=== PATIENT | male | born 1985 | race Caucasian/White ===

== ENCOUNTER 2020-10-02 04:30 | Inpatient (IN) | payer OTHER, SELFPAY ==
[2020-10-02] VITALS (12 sets, daily range): BP systolic 116–137; BP diastolic 60–81; PULSE 65–82; RESP 14–18; TEMP 36.6–36.8; O2SAT 96–100; BMI 26.9
--- NOTE | ~2020-10-02 | CT_ITS ---
EXAMINATION: CT ABDOMEN AND PELVIS WITH CONTRAST CLINICAL INFORMATION: 34-year-old male with right lower quadrant pain. COMPARISON: None TECHNIQUE: Multidetector volumetric images were obtained from the superior aspect of the liver through the pubic symphysis following administration 85 mL of Omnipaque 350 intravenous contrast. Sagittal and coronal reformatted images were obtained on the technologist's workstation. This CT examination was performed using dose optimization techniques as appropriate, variously including the following: *Automated exposure control *Adjustment of mA and/or kV according to patient size (this includes techniques or standardized protocols for targeted exams where dose is matched to indication/reason for exam; i.e. extremities or head) *Use of iterative reconstruction technique DLP: 583 mGy-cm FINDINGS: Visualized lung bases demonstrate mild dependent atelectasis. The liver demonstrates normal size, contour and attenuation. The gallbladder is normal in appearance. The pancreas, spleen and adrenal glands are unremarkable. Symmetrically enhancing kidneys. No hydronephrosis bilaterally. A few subcentimeter renal hypodensities are too small to accurately characterize. The stomach is decompressed. Normal caliber loops of small and large bowel. The appendix is dilated measuring up to 1 cm in diameter. There is adjacent mesenteric stranding with a small amount of free fluid within the right paracolic gutter. A few mildly prominent lymph nodes are noted within the right lower abdomen. There is no complicating abscess. Nonaneurysmal abdominal aorta. A few prominent retroperitoneal lymph nodes are appreciated, nonspecific. The bladder is normal in appearance. The prostate gland is normal in size. No gross free pelvic fluid. No inguinal lymphadenopathy. No acute osseous abnormality. CT/CT abdomen pelvis w con IMPRESSION: CT findings most consistent with acute appendicitis. This Critical Result was discussed with Dr. Coleman at 8:54 AM on October 12, 2020 and it was ascertained that the content and urgency of the report was understood at the time of direct communication.
--- NOTE | 2020-10-02 05:19 | PC.NURSE ---
PT HAS A HX OF A BLOCKED URETER, NEEDING SURGERY.
[2020-10-02 05:20] LABS: MANUAL DIFF FLAG NO
[2020-10-02 05:21] LABS: Basophils Percent Auto 0.2 % (0-2); Eosinophils Absolute Auto 0.1 X10*3/uL (0.0-0.4); Eosinophils Percent Auto 0.8 % (0-4); Hematocrit 42.3 % (42-52); Hemoglobin 14.1 g/dl (14.0-18.0); Imm Gran Abs Auto 0.05 X10*3/uL (0.00-0.03); Imm Gran Pct Auto 0.4 % (0.0-0.4); Lymphocytes Absolute Auto 0.9 X10*3/uL (1.2-4.9); Lymphocytes Percent Auto 7.1 % (20-40); Mean Corpuscular HGB Conc 33.3 g/dl (31.0-36.0); Mean Corpuscular Hemoglobin 29.9 pg (27.0-33.0); Mean Corpuscular Volume 89.8 fL (80-98); Mean Platelet Volume 9.6 fL (9.4-12.4); Monocytes Absolute Auto 0.7 X10*3/uL (0.1-1.2); Monocytes Percent Auto 5.4 % (2-11); Neutrophils Absolute Auto 10.6 X10*3/uL (2.0-8.3); Neutrophils Percent Auto 86.1 % (45-73); Platelet Count 202 X10*3/uL (160-400); Red Blood Count 4.71 X10*6/uL (4.60-5.80); Red Cell Distribution Width 12.6 % (11.0-16.0); White Blood Count 12.3 X10*3/uL (4.8-10.8)
[2020-10-02 05:28] LABS: Glucose Urine UA NEG (NEG); Leukocyte Esterase Urine NEG (NEG); Nitrite Urine NEG (NEG); Specific Gravity - Urine 1.025 (1.005-1.025); Urine Blood NEG (NEG); Urine Ketones 15 MG/DL (NEG); Urine Protein NEG (NEG-TRACE)
[2020-10-02 05:32] LABS: Appearance Urine CLEAR; Color Urine YELLOW
[2020-10-02 05:46] LABS: Alanine Aminotransferase 22 U/L (0-40); Albumin Level 4.6 g/dL (3.5-5.0); Alkaline Phosphatase 38 U/L (39-117); Anion Gap 13 (12-20); Aspartate Amino Transferase 18 U/L (5-37); Blood Urea Nitrogen 12 mg/dL (9-16); Calcium 9.1 mg/dL (8.4-10.2); Carbon Dioxide 29 mmol/L (22-29); Chloride 103 mmol/L (96-108); Creatinine Clr Calc Pharmacy 123.3; Estimated Glomerular Filt Rate > 60; Glucose Random 109 mg/dL (60-115); Potassium 4.1 mmol/L (3.3-5.1); Sodium 141 mmol/L (135-145); Total Protein 7.1 g/dL (6.5-8.0)
--- NOTE | 2020-10-02 06:26 | ED_ITS ---
HPI - Abdominal Pain General Chief Complaint: Abdominal Pain Stated Complaint: Abdominal Pain Time Seen by Provider: 10/02/20 06:26 Source: patient Mode of arrival: ambulatory Limitations: no limitations History of Present Illness HPI narrative: 34 yo male with no sig PMH here with RLQ pain since 0200 + n/v MD elicited complaint: abdominal pain Pertinent past history: none Onset (ago): hour(s) (4) Pain Consistency: constant Location: RLQ Severity: moderate Quality: cramping and stabbing Radiation: none Migration to: no migration Exacerbating factors: movement Relieving factors: nothing Associated symptoms: nausea and vomiting Related Data Allergies Allergy/AdvReac Type Severity Reaction Status Date / Time Sulfa (Sulfonamide Allergy Unknown UNKNOWN Verified 10/02/20 04:58 Antibiotics) [SULFA (SULFONAMIDE ANTIBIOTICS)] Review of Systems Review of Systems Constitutional : No Weight loss, No Fever, No Chills ENT/Mouth : No sore throat, No Rhinorrhea Eyes: No Swelling, No Redness Cardiovascular : No Chest Pain, No SOB, NoEdema Respiratory : No Cough, No Sputum, No Wheezing Gastrointestinal : Positive Nausea, Positive Vomiting, no Diarrhea, positive abdominal Pain, No Hematochezia, No Melena Genitourinary : No Dysuria, No Urinary Frequency, No Hematuria, No Urgency Musculoskeletal : No joint pain, No Myalgias, No Joint Swelling Skin : No Skin Lesions, No rash Neuro : No Weakness, No Numbness, No Dizziness, No Headache Psych : No Anxiety/Panic, No Depression Heme/Lymph: No Bruising, No Lymphadenopathy Endocrine : No Polyuria, No Polydipsia All other systems reviewed and are negative. Physical Exam Vital Signs: Vital Signs: Last Vital Signs Temp 98.2 F 10/02/20 04:52 Pulse 66 10/02/20 04:52 Resp 14 10/02/20 04:52 BP 136/80 10/02/20 04:52 Pulse Ox 97 10/02/20 04:52 Body Mass Index 26.9 Appearance: Alert. Oriented X3. No acute distress. Eyes: Pupils equal, round and reactive to light. ENT: Pharynx normal. Neck: Normal inspection. Neck supple. CVS: Normal heart rate and rhythm. Pulses normal. Respiratory: No respiratory distress. Breath sounds normal. Abdomen: Soft and moderate RLQ pain and + Rovsing's sign no rebound or guarding Skin: Skin warm and dry. Normal skin color. Normal skin turgor. Extremities: No lower extremity edema. No calf ttp Neuro: Oriented X 3. No motor deficit. No sensory deficit. Course Course Course Narrative: call from Radiology - 854Am +appendicitis mild free fluid no abscess will notify surgery and start on zosyn 855am MDM - Abdominal Pain MDM Narrative Medical decision making narrative: 34 yo male with no sig PMH here with RLQ pain and n/v at this time will need labs, IV IV Toradol/zofran - CT scan for appen dicitis vs renal colic, dispo per results and findings. Differential Diagnosis Differential diagnosis: Likely abdominal pain, acute appendicitis and calculus of kidney Lab Data Result diagrams: 10/02/20 05:15 10/02/20 05:15 Labs: Lab Results 10/02/20 10/02/20 10/02/20 Range/Units 05:10 05:15 05:15 WBC 12.3 H (4.8-10.8) X10*3/uL RBC 4.71 (4.60-5.80) X10*6/uL Hgb 14.1 (14.0-18.0) g/dl Hct 42.3 (42-52) % MCV 89.8 (80-98) fL MCH 29.9 (27.0-33.0) pg MCHC 33.3 (31.0-36.0) g/dl RDW 12.6 (11.0-16.0) % Plt Count 202 (160-400) X10*3/uL MPV 9.6 (9.4-12.4) fL Immature Gran % (Auto) 0.4 (0.0-0.4) % Neut % (Auto) 86.1 H (45-73) % Lymph % (Auto) 7.1 L (20-40) % [place] % (Auto) 5.4 (2-11) % Eos % (Auto) 0.8 (0-4) % Baso % (Auto) 0.2 (0-2) % Lymph # (Auto) 0.9 L (1.2-4.9) X10*3/uL [place] # (Auto) 0.7 (0.1-1.2) X10*3/uL Eos # (Auto) 0.1 (0.0-0.4) X10*3/uL Baso # (Auto) 0.0 (0.0-0.2) X10*3/uL Abs Immat Gran (auto) 0.05 H (0.00-0.03) X10*3/uL Absolute Neuts (auto) 10.6 H (2.0-8.3) X10*3/uL Absolute Nucleated RBC 0.000 (0.0-0.012) X10*3/uL Nucleated RBC % (auto) 0.0 (0.0-0.2) /100WBC Hold Blue Top SEE NOTE Sodium (135-145) mmol/L Potassium (3.3-5.1) mmol/L Chloride (96-108) mmol/L Carbon Dioxide (22-29) mmol/L Anion Gap (12-20) BUN (9-16) mg/dL Creatinine (0.5-1.4) mg/dL Estim Creat Clear Calc Estimated GFR Random Glucose (60-115) mg/dL Calcium (8.4-10.2) mg/dL Total Bilirubin (0.0-1.0) mg/dL AST (5-37) U/L ALT (0-40) U/L Alkaline Phosphatase (39-117) U/L Total Protein (6.5-8.0) g/dL Albumin (3.5-5.0) g/dL Urine Color YELLOW Urine Appearance CLEAR Urine pH 6.0 (5.0-8.0) Ur Specific [place] 1.025 (1.005-1.025) Urine Protein NEG (NEG-TRACE) MG/DL Urine Glucose (UA) NEG (NEG) MG/DL Urine Ketones 15 (NEG) MG/DL Urine Blood NEG (NEG) Urine Nitrite NEG (NEG) Ur Leukocyte Esterase NEG (NEG) 10/02/20 Range/Units 05:15 WBC (4.8-10.8) X10*3/uL RBC (4.60-5.80) X10*6/uL Hgb (14.0-18.0) g/dl Hct (42-52) % MCV (80-98) fL MCH (27.0-33.0) pg MCHC (31.0-36.0) g/dl RDW (11.0-16.0) % Plt Count (160-400) X10*3/uL MPV (9.4-12.4) fL Immature Gran % (Auto) (0.0-0.4) % Neut % (Auto) (45-73) % Lymph % (Auto) (20-40) % [place] % (Auto) (2-11) % Eos % (Auto) (0-4) % Baso % (Auto) (0-2) % Lymph # (Auto) (1.2-4.9) X10*3/uL [place] # (Auto) (0.1-1.2) X10*3/uL Eos # (Auto) (0.0-0.4) X10*3/uL Baso # (Auto) (0.0-0.2) X10*3/uL Abs Immat Gran (auto) (0.00-0.03) X10*3/uL Absolute Neuts (auto) (2.0-8.3) X10*3/uL Absolute Nucleated RBC (0.0-0.012) X10*3/uL Nucleated RBC % (auto) (0.0-0.2) /100WBC Hold Blue Top Sodium 141 (135-145) mmol/L Potassium 4.1 (3.3-5.1) mmol/L Chloride 103 (96-108) mmol/L Carbon Dioxide 29 (22-29) mmol/L Anion Gap 13 (12-20) BUN 12 (9-16) mg/dL Creatinine 1.00 (0.5-1.4) mg/dL Estim Creat Clear Calc 123.3 Estimated GFR > 60 Random Glucose 109 (60-115) mg/dL Calcium 9.1 (8.4-10.2) mg/dL Total Bilirubin 1.0 (0.0-1.0) mg/dL AST 18 (5-37) U/L ALT 22 (0-40) U/L Alkaline Phosphatase 38 L (39-117) U/L Total Protein 7.1 (6.5-8.0) g/dL Albumin 4.6 (3.5-5.0) g/dL Urine Color Urine Appearance Urine pH (5.0-8.0) Ur Specific [place] (1.005-1.025) Urine Protein (NEG-TRACE) MG/DL Urine Glucose (UA) (NEG) MG/DL Urine Ketones (NEG) MG/DL Urine Blood (NEG) Urine Nitrite (NEG) Ur Leukocyte Esterase (NEG) Discharge Plan Discharge Clinical Impression: Abdominal pain, Acute appendicitis Patient Disposition: Admitted As Inpatient [facility] Past Medical History Attestation statement: The following information was validated with the patient. Medical History No active medical problems Surgical History History of kidney surgery Social History Social History Household Members: Spouse Housing: House Are you a primary clinical care manager to a significant other at home: No Alcohol intake: current Alcohol intake frequency: a few times a month Smoking Status: Never smoker Advance Directives: No
[2020-10-02] MEDS: 0.9 % Sodium Chloride 1,000 ML 999 ML IVCONT (06:37)
[2020-10-02] MEDS: ondansetron HCL 4 MG/2 ML VIAL IVPUSH (06:38)
[2020-10-02] MEDS: Ketorolac Tromethamine 30 MG/ML VIAL IVPUSH (06:38)
[2020-10-02] MEDS: iohexoL 350 MG/ML 100 ML INFUS..BTL IV (08:40)
--- NOTE | 2020-10-02 09:19 | PM.HPGS ---
History of Present Illness History of Present Illness Date of Service: 10/02/20 Chief complaint: Abdominal Pain Narrative: Sg Frausto is a 34 year old male presenting with complaints of abdominal pain in the right lower quadrant. The pain began early this morning in the lower abdomen gradually radiated to the right lower quadrant. Pain was associated with nausea and vomiting be denies fever or chills. Denies a previous history of similar symptoms. Presented to the emergency room this morning and was found to have tenderness in the right lower quadrant. He reports pain with ambulation. Laboratories revealed elevated WBC and CT of the abdomen and pelvis confirmed acute appendicitis without perforation. Review of Systems Constitutional: Constitutional: Denies chills, Denies fever(s), Denies headache(s) and Denies poor appetite ENT: Denies dizziness and Denies headache(s) Cardiovascular: Cardiovascular: Denies chest pain, Denies rapid heart rate, Denies palpitations and Denies slow heart rate Respiratory: Respiratory: Denies chest congestion, Denies cough, Denies pain on inspiration and Denies wheezing Gastrointestinal: Gastrointestinal: Reports abdominal pain, Denies bloating, Denies change in stool character, Denies constipation, Denies diarrhea, Reports nausea, Reports vomiting and Denies hematemesis Musculoskeletal: Musculoskeletal: Denies back pain, Denies arthralgias, Denies joint swelling and Denies numbness Integumentary/Breasts: Skin/Breast: Denies change in pigmentation, Denies erythema and Denies rash Neurologic: Denies dizziness, Denies headache(s) and Denies numbness Psychiatric: Psychiatric: Denies anxiety and Denies depression Endocrine: Endocrine: Denies palpitations Hematologic/Lymphatic: Hematologic/Lymphatic: Denies easy bleeding, Denies easy bruising and Denies lymphadenopathy Allergic/Immunologic: Allergic/Immunologic: Denies wheezing PMFSH Past Medical History Medical History No active medical problems Surgical History Surgical History History of kidney surgery Social History Social History Household Members: Spouse Housing: House Are you a primary caregiver services home to a significant other at home: No Alcohol intake: current Alcohol intake frequency: a few times a month Smoking Status: Never smoker Advance Directives: No Meds Allergies Allergy/AdvReac Type Severity Reaction Status Date / Time Sulfa (Sulfonamide Allergy Unknown UNKNOWN Verified 10/02/20 04:58 Antibiotics) [SULFA (SULFONAMIDE ANTIBIOTICS)] Active Medications: Current Medications Generic Name Dose Route Start Last Admin Trade Name Freq PRN Reason Stop Dose Admin Piperacillin Sod/Tazobactam 50 mls @ 100 mls/hr 10/02/20 08:55 Sod 3.375 gm/ Sodium Chloride IV 10/02/20 09:24 ONCE ONE Pharmacy Consult 1 each 10/02/20 08:56 Consult Rx Perform Med Rec MISCELLANE ONCE PRN Consult order Home Medications Medication Instructions Recorded Confirmed Last Taken Type No Known Home Meds 10/02/20 10/02/20 Unknown History Physical Exam Vital Signs: Vital Signs: Last Vital Signs Temp 98.2 F 10/02/20 04:52 Pulse 66 10/02/20 04:52 Resp 14 10/02/20 04:52 BP 136/80 10/02/20 04:52 Pulse Ox 97 10/02/20 04:52 Body Mass Index 26.9 Const: General: cooperative, comfortable and well developed Nutritional Appearance: well nourished Orientation/consciousness: patient oriented x3 Eyes: Sclerae: sclerae normal EOM: EOMs intact bilaterally Neck: Neck: Yes normal visual inspection Resp: Effort & Inspection: normal respiratory effort, no cough, no respiratory distress and no stridor Cardio: Jugular venous distension: no JVD GI: Inspection: Yes normal to inspection Palpation (GI): Soft to palpation, Tenderness to palpation present (GI) in the RLQ, at McBurney's point, obturator sign positive and Rovsing's sign positive, no guarding and not rigid Skin: General skin exam: dry skin Rashes: no rashes Neuro: General: patient oriented x3 and no focal motor deficits Extrem: General: Yes full ROM and Yes no clubbing, cyanosis or edema Psych: Appearance: grossly normal Results Results Labs: Short CBC 10/02/20 Range/Units 05:15 WBC 12.3 H (4.8-10.8) X10*3/uL Hgb 14.1 (14.0-18.0) g/dl Hct 42.3 (42-52) % Plt Count 202 (160-400) X10*3/uL BMP 10/02/20 05:15 Sodium 141 Potassium 4.1 Chloride 103 Carbon Dioxide 29 BUN 12 Creatinine 1.00 Calcium 9.1 Liver Function 10/02/20 Range/Units 05:15 Total Bilirubin 1.0 (0.0-1.0) mg/dL AST 18 (5-37) U/L ALT 22 (0-40) U/L Alkaline Phosphatase 38 L (39-117) U/L Albumin 4.6 (3.5-5.0) g/dL Urine 10/02/20 Range/Units 05:10 Urine Color YELLOW Urine Appearance CLEAR Urine pH 6.0 (5.0-8.0) Ur Specific [place] 1.025 (1.005-1.025) Urine Protein NEG (NEG-TRACE) MG/DL Urine Glucose (UA) NEG (NEG) MG/DL Assessment and Plan (1) Acute appendicitis: Qualifiers: Acute appendicitis type: with localized peritonitis Appendicitis abscess presence: without abscess Appendicitis gangrene presence: without gangrene Appendicitis perforation presence: without perforation Qualified Code(s): K35.30 - Acute appendicitis with localized peritonitis, without perforation or gangrene Status: Acute 34-year-old male patient presenting with complaints of abdominal pain in the right lower quadrant. On examination he is tender in the right lower quadrant with localized rebound and Rovsing sign. Laboratories revealed elevated WBC. CT of the abdomen and pelvis confirmed a thickened appendix consistent with an uncomplicated acute appendicitis. I discussed treatment with either IV antibiotics verses laparoscopic appendectomy. After discussion of the procedure, risks, and alternatives, he consents to a laparoscopic or possible open appendectomy. He will be added onto the operative schedule for today.
[2020-10-02 09:27] LABS: INTERNATIONAL NORM RATIO 1.1 (0.9-1.1); Prothrombin Time 12.8 SEC (10.8-13.0)
[2020-10-02 09:29] LABS: Partial Thromboplastin Time 34.7 SEC (24.1-38.0)
[2020-10-02] MEDS: Piperacillin Sodium/Tazobactam 3.375 GM in 0.9 % Sodium Chloride 50 ML IV (09:32)
--- NOTE | 2020-10-02 10:33 | P.CONAN_ITS ---
[facility] Active Problems Active Problems: All Active Problems (Updated 10/02/20 @ 08:56 by Marjan vasquez DO) Abdominal pain (Acute) Acute appendicitis (Acute) Past Medical History Medical History No active medical problems Surgical History Surgical History History of kidney surgery Social History Social History Household Members: Spouse Housing: House Alcohol intake: unknown Smoking Status: Current some day smoker Meds Allergies Allergy/AdvReac Type Severity Reaction Status Date / Time Sulfa (Sulfonamide Allergy Unknown UNKNOWN Verified 10/02/20 10:49 Antibiotics) [SULFA (SULFONAMIDE ANTIBIOTICS)] Active Medications: Current Medications Generic Name Dose Route Start Last Admin Trade Name Freq PRN Reason Stop Dose Admin Pharmacy Consult 1 each 10/02/20 08:56 Consult Rx Perform Med Rec MISCELLANE ONCE PRN Consult order Home Medications Medication Instructions Recorded Confirmed Last Taken Type No Known Home Meds 10/02/20 10/02/20 Unknown History Exam Exam Date and Time: October 02, 2020 1033 Height,Weight and Vital Signs: Height 6 ft 2 in Weight 95.254 kg Last Vital Signs Temp 98.2 F 10/02/20 04:52 Pulse 66 10/02/20 04:52 Resp 14 10/02/20 04:52 BP 136/80 10/02/20 04:52 Pulse Ox 97 10/02/20 04:52 Pertinent Lab Results Pertinent Lab Results: Laboratory Tests 10/02/20 10/02/20 10/02/20 05:10 05:15 05:15 WBC 12.3 H RBC 4.71 Hgb 14.1 Hct 42.3 MCV 89.8 MCH 29.9 MCHC 33.3 RDW 12.6 Plt Count 202 MPV 9.6 Immature Gran % (Auto) 0.4 Neut % (Auto) 86.1 H Lymph % (Auto) 7.1 L [place] % (Auto) 5.4 Eos % (Auto) 0.8 Baso % (Auto) 0.2 Lymph # (Auto) 0.9 L [place] # (Auto) 0.7 Eos # (Auto) 0.1 Baso # (Auto) 0.0 Abs Immat Gran (auto) 0.05 H Absolute Neuts (auto) 10.6 H Absolute Nucleated RBC 0.000 Nucleated RBC % (auto) 0.0 PT 12.8 INR 1.1 APTT 34.7 Hold Blue Top SEE NOTE Sodium Potassium Chloride Carbon Dioxide Anion Gap BUN Creatinine Estim Creat Clear Calc Estimated GFR Random Glucose Calcium Total Bilirubin AST ALT Alkaline Phosphatase Total Protein Albumin Urine Color YELLOW Urine Appearance CLEAR Urine pH 6.0 Ur Specific [place] 1.025 Urine Protein NEG Urine Glucose (UA) NEG Urine Ketones 15 Urine Blood NEG Urine Nitrite NEG Ur Leukocyte Esterase NEG 10/02/20 05:15 WBC RBC Hgb Hct MCV MCH MCHC RDW Plt Count MPV Immature Gran % (Auto) Neut % (Auto) Lymph % (Auto) [place] % (Auto) Eos % (Auto) Baso % (Auto) Lymph # (Auto) [place] # (Auto) Eos # (Auto) Baso # (Auto) Abs Immat Gran (auto) Absolute Neuts (auto) Absolute Nucleated RBC Nucleated RBC % (auto) PT INR APTT Hold Blue Top Sodium 141 Potassium 4.1 Chloride 103 Carbon Dioxide 29 Anion Gap 13 BUN 12 Creatinine 1.00 Estim Creat Clear Calc 123.3 Estimated GFR > 60 Random Glucose 109 Calcium 9.1 Total Bilirubin 1.0 AST 18 ALT 22 Alkaline Phosphatase 38 L Total Protein 7.1 Albumin 4.6 Urine Color Urine Appearance Urine pH Ur Specific [place] Urine Protein Urine Glucose (UA) Urine Ketones Urine Blood Urine Nitrite Ur Leukocyte Esterase Airway Mallampati Class: II TM Dist: >3cm Neck ROM: Full Loose/Missing/Broken Teeth: No Heart: RRR Lungs: CTA Assessment and Plan Assessment Anesthesia Assessment: Anesthesia Plan Discussed and Chart Reviewed Final Anesthetic Review NPO: Yes ASA Class: II Final Preanesthetic Review: Meds/Allgs Chart Reviewed, Consent Obtained/Reviewed and Anes Risks/Benef Reviewed Patient Risk: Low Procedure Risk: Low Anesthetic Plan Anesthetic Plan: GA Disposition: Standard PACU
[2020-10-02 10:37] LABS: COVID-19 Test Negative (Negative); IDNOW Serial# 9DD0AD1C
--- NOTE | 2020-10-02 10:45 | PC.NURSE ---
pt ambulatory to bathroom and then via wheelchair to short stay. Pt states pain tolerable, better than earlier.
[2020-10-02] MEDS: Lactated Ringers 1,000 ML 50 ML IV (11:03)
--- NOTE | 2020-10-02 12:09 | W.PM.OPN ---
Operative Note Operative Note Date of Service: 10/02/20 Narrative: Preoperative diagnosis: Acute appendicitis Postoperative diagnosis: Same Procedure: Laparoscopic appendectomy Surgeon: Gavin Avila MD Family Service Counselor:none Anesthesia: General endotracheal Indications for procedure: 34-year-old male patient presenting with complaints of abdominal pain in the lower abdomen radiating to the right lower quadrant found to have an elevated WBC and appendicitis by CT of the abdomen and pelvis. Operative findings: Appendicitis without rupture. Specimen: Appendix Estimated blood loss: 5 mL Complications: None Procedure details: Patient was brought to the OR and placed in a supine position. After administering general anesthesia the patient's abdomen was prepped with ChloraPrep and draped in a sterile fashion. A surgical time-out was called and consent confirmed. Patient received preoperative antibiotics and Venodyne boots were in place. Local anesthesia consisting of 0.75% Sensorcaine with epinephrine was infiltrated in periumbilical region. A 5 mm incision was made below the umbilicus and carried down through subcutaneous tissue. A Veress needle was then inserted while elevating abdominal cavity with towel clips. After a positive drop test the abdomen was insufflated to a pressure of 15 mm of mercury. The Veress needle was removed and a 5 mm trocar inserted. The camera was then inserted in the abdomen explored. A 2nd 5 mm trocars placed in the lower midline. A 12 mm trocar was then placed in the left lower quadrant. The patient was then placed in a Trendelenburg position and rotated to the left. The appendix was identified in the right lower quadrant and brought up using blunt dissecting clamps. The mesentery of the appendix was then divided using the LigaSure. The appendiceal artery was cauterized and divided using the LigaSure. Dissection was continued down to the base of the cecum. An Endo-KIRSTY stapler with a purple reload was then used to divide the appendix at the base with the cecum. The appendix was then placed in Endo-Catch bag and brought out through the left lower quadrant incision. The abdomen was then irrigated with saline solution and suctioned dry. Wounds were checked for hemostasis. CO2 was then evacuated from the abdominal cavity and all trocars removed. Fascia was closed in the left lower quadrant incision using a [id number] 0 Polysorb suture. Skin was closed at all incisions using a subcuticular 4-0 Polysorb suture. Steri-Strips 2 x 2 gauze and Tegaderm were then applied. The patient tolerated the procedure well. Sponge, instrument, needle counts reported as correct. The patient was transferred to PACU in stable condition.
[2020-10-02] MEDS: 0.9 % Sodium Chloride Flush 3 ML SYRINGE IVFLUSH ×2 (17:25→20:38)
[2020-10-03 00:01] VITALS: BP 106/62; PULSE 64; RESP 20; TEMP 36.8; O2SAT 96
[2020-10-03 03:59] VITALS: BP 101/56; PULSE 69; RESP 20; TEMP 36.9; O2SAT 96
[2020-10-03 07:27] VITALS: BP 121/79; PULSE 71; RESP 17; TEMP 36.9; O2SAT 97
--- NOTE | 2020-10-03 07:37 | P.PNGS_ITS ---
Subjective Subjective Date of Service: 10/03/20 Interval history: Patient feels much improved; tolerated po last night without nausea or vomiting. Physical Exam Vital Signs: Vital Signs: Last Vital Signs Temp 98.5 F 10/03/20 07:27 Pulse 71 10/03/20 07:27 Resp 17 10/03/20 07:27 BP 121/79 10/03/20 07:27 Pulse Ox 97 10/03/20 07:27 Body Mass Index 26.9 Const: General: cooperative, healthy appearing, comfortable and no acute distress Resp: Effort & Inspection: normal respiratory effort, no audible wheezes and no cough GI: Other: incisions are clean and intact Inspection: Yes normal to ins pection Palpation (GI): Soft to palpation, no guarding and not rigid Skin: General skin exam: no rashes or lesions noted Extrem: General: Yes normal to inspection Progress Note: A&P Assessment and plan (1) Acute appendicitis: Status: Acute Assessment and Plan: POD #1 s/p laparoscopic appendectomy. Patient tolerated the surgery well and is comfortable today. He tolerated his diet last night without nausea or vomiting. Will discharge to home, follow up in office in one week. Fall Risk Details Current Medications: Current Medications Generic Name Dose Route Start Last Admin Trade Name Freq PRN Reason Stop Dose Admin Acetaminophen 650 mg 10/02/20 15:11 Acetaminophen 325 Mg Tablet PO Q6H PRN Pain, Mild (Pain Scale 1-3) Morphine Sulfate 3 mg 10/02/20 15:11 Morphine Sulfate 2 Mg/Ml Cartridge IVPUSH Q3H PRN Pain, Severe (Pain Scale 7-10) Ondansetron HCl 4 mg 10/02/20 15:11 Ondansetron Hcl 4 Mg/2 Ml Vial IVPUSH Q8H PRN Nausea and Vomiting Oxycodone HCl 5 mg 10/02/20 15:11 Oxycodone Hcl Immed Release 5 Mg Tablet PO Q6H PRN Pain, Moderate (Pain Scale 4-6 Pharmacy Consult 1 each 10/02/20 08:56 Consult Rx Perform Med Rec MISCELLANE ONCE PRN Consult order Sodium Chloride 3 ml 10/02/20 16:00 10/02/20 20:38 0.9 % Sodium Chloride Flush 3 Ml Syringe IVFLUSH 3 ml QSHIFT LLOYD Administration Zolpidem Tartrate 5 mg 10/02/20 15:11 Zolpidem Tartrate 5 Mg Tablet PO BEDTIME PRN Insomnia Time Spent With Patient Time: Total time spent is greater than 50% in coordination of care (as documented) at patient's floor/unit and/or counseling patient: Time with patient: 15 - 24 minutes
--- NOTE | 2020-10-03 07:40 | PM.DS ---
DS: Providers Provider Date of Service: 10/03/20 Date of admission: 10/02/20 09:25 Date of discharge: 10/03/20 Primary care physician: Jodi Barroso PA-C Admitting clinician: Gavin Avila Discharging clinician: Gavin Avila DS: Diagnosis Discharge Diagnosis (1) Acute appendicitis: Status: Acute Problem details: s/p laparoscopic appendectomy on 10/02/2020 DS: Medications Discharge Medications Home Medications: Home Medications Medication Instructions Recorded Confirmed No Known Home Meds 10/02/20 10/02/20 Previous Rx's Medication Instructions Recorded oxycodone 5 mg PO Q6H PRN #14 tab 10/03/20 DS: Summary Hospital Course Hospital Course: Sg Frausto is a 34 year old male presenting with complaints of abdominal pain in the right lower quadrant. The pain began early yesterday morning in the lower abdomen gradually radiated to the right lower quadrant. Pain was associated with nausea and vomiting be denies fever or chills. Denies a previous history of similar symptoms. Presented to the emergency room and was found to have tenderness in the right lower quadrant. He reports pain with ambulation. Laboratories revealed elevated WBC and CT of the abdomen and pelvis confirmed acute appendicitis without perforation. Patient was taken to the OR on the day of admission and underwent a laparoscopic appendectomy. Operative findings were consistent with acute appendicitis without perforation or abscess. Patient tolerated the procedure well and was transported to recovery room in stable condition. He was advanced to a regular diet on the evening of surgery and by the next hospital day was tolerating this diet well without nausea or vomiting. Patient is comfortable on oral pain medication. Patient is to be discharged to home on postoperative day 1. He was instructed to avoid lifting greater than 10 lb for the next 2 weeks. He should also avoid driving for the next week. He may resume a regular diet. I have asked him to return to the office in 1 week for wound examination. He should call sooner for fever, chills, nausea, vomiting, or increased abdominal pain. Time Spent with Patient Time attestation: Total time spent providing and/or coordinating discharge services: Discharge coordination time: Less than 30 minutes Physical Exam Vital Signs: Vital Signs: Last Vital Signs Temp 98.5 F 10/03/20 07:27 Pulse 71 10/03/20 07:27 Resp 17 10/03/20 07:27 BP 121/79 10/03/20 07:27 Pulse Ox 97 10/03/20 07:27 Body Mass Index 26.9 Const General: cooperative, healthy appearing, comfortable and no acute distress Resp Effort & Inspection: normal respiratory effort, no audible wheezes and no cough GI Other: incisions are clean and intact Inspection: Yes normal to inspection Palpation (GI): Soft to palpation, no guarding and not rigid Skin General skin exam: no rashes or lesions noted Extrem General: Yes normal to inspection DS: Data Data Completed and Pending Pending studies at discharge: Pending at discharge 10/02/20 11:57 Surgical [PTH] Routine Labs on day of discharge: Laboratory Results - last 24 hr 10/02/20 10/02/20 05:15 10:17 PT 12.8 INR 1.1 APTT 34.7 COVID-19 ([facility]) Negative COVID-19 Clin Com See Note Discharge Plan Discharge Patient Disposition: Home, Self-Care Referrals: Gavin Avila MD [Physician] - 1 Week Jodi Barroso PA-C [Primary Care Provider] - Discharge Medications: New oxycodone 5 mg tablet 5 mg PO Q6H PRN (Reason: pain) Qty: 14 RF: 0 No Action No Known Home Meds RF: 0 Discharge Orders: Discharge Order (Routine); Ordered 10/03/20 Ordered By: Gavin Avila Diet: advance to usual diet Activity on Discharge: No heavy lifting Stand Alone Forms: Patient Portal Discharge page, Work/School Release Activity Restrictions/Additional Instructions: If the incision area is tender, you may apply an ice pack for short intervals (No more than 20 minutes on, followed by at least 20 minutes off). Do not apply heat. Do not use creams, lotions, or topical antibiotics unless instructed to do so by your surgeon. These can cause infection or allergic reaction. Ok to shower. You have ronald closing your incision and these will be removed approximately 10-14 days after surgery. Call Your Doctor If: -Your temperature exceeds 101.5? F -You experience excessive pain or swelling -You have an unexpected reaction to medication -You have excessive bleeding -You experience continued vomiting/nausea -Your incision begins to separate -Your incision shows signs of infection such as increased redness, swelling, excessive pain, drainage (light blood or clear fluid is normal) or heat No lifting > 10 pounds for 2 weeks No driving for one week Ice to the incision x 24 hours Remove dressing in 3 days Follow up in office in one week. Care Plan Goals: Return to normal activity and normal diet Health Concerns: acute appendicitis Plan of Treatment: Laparoscopic appendectomy Patient Instructions: Laparoscopic Appendectomy (DC)
[2020-10-03] MEDS: oxyCODONE HCl Immed Release 5 MG TABLET PO (07:41)
[2020-10-03] MEDS: 0.9 % Sodium Chloride Flush 3 ML SYRINGE IVFLUSH (07:42)
--- NOTE | 2020-10-03 08:37 | MHC.CM.PN ---
EMR REVIEWED, PT ADMITTED W/ABDOMINAL PLANE, PT IS ALERT AND ORIENTED, IS EMPLOYED [employer], INDEPENDENT W/CARE, NO DME OR HOME SERVICES, PT VERIFIES PCP ON FILE IS ACCURATE AND DECLINES HCP AT THIS TIME, D/C PLAN ALREADY IN PLACE. DISCHARGE PLAN HOME SELF-CARE, TO TRANSPORT. PCP: DONALD THOMSON
--- NOTE | 2020-10-03 14:40 | HO.POSTANES ---
Post Anesthesia Evaluation Post Anesthesia Evaluation Vital Signs: Vital Signs Temp Pulse Resp BP Pulse Ox 10/03/20 07:27 98.5 F 71 17 121/79 97 10/03/20 03:59 98.5 F 69 20 101/56 L 96 Anesthesia: General Endotracheal-GETA Mental Status: Awake Pain Control: Satisfactory Nausea/Vomiting: None Hydration: Adequate Anesthesia-Related Issues: No Anes. Related Issues
== END 2020-10-03 08:55 | disposition home or self-care (01) | DRG 234 ==
LOC: HO.ED 09:30 → HO.EDOVER 09:33 → HO.S3 14:44
PROVIDERS: Admitting Provider Surgery; Emergency Provider Emergency Medicine; PCP Physician Assistant; Visit Provider Surgery
PROC: 0DTJ4ZZ Resection of Appendix, Percutaneous Endoscopic Approach (ICD-10-PCS; CPT 44970; principal; 2020-10-02 11:00)
DX: K35.30 Acute appendicitis with localized peritonitis, without perforation or gangrene (principal); Z20.822 Contact with and (suspected) exposure to COVID-19; Z88.2 Allergy status to sulfonamides
CPT/HCPCS: 36415; 74177; 80053; 81003; 85025; 85610; 85730; 87635; 88304; 96365; 96375; 99024; 99285; J0131; J1100; J1885; J2250; J2405; J2543; J3010; Q9967

== ENCOUNTER → 2020-10-11 15:07 | Outpatient (BNVA) | payer OTHER, SELFPAY | PROVIDERS: PCP Physician Assistant; Visit Provider Surgery | DX: K35.30 Acute appendicitis with localized peritonitis, without perforation or gangrene (principal) | CPT/HCPCS: 99212 ==

== ENCOUNTER 2020-10-24 19:28 | Emergency (ER) | payer OTHER, SELFPAY ==
--- NOTE | ~2020-10-24 | US_ITS ---
EXAMINATION: US ABDOMEN LIMITED CLINICAL INFORMATION: Right upper quadrant pain. COMPARISON: None TECHNIQUE: Real-time imaging of the right upper quadrant targeting the gallbladder. FINDINGS: GALLBLADDER: Normal. The gallbladder is physiologically distended without evidence of stones, sludge, polyps, wall thickening or pericholecystic fluid. COMMON BILE DUCT: Normal in caliber measuring 0.3 cm in diameter. FREE FLUID: None. US/US abdomen limited IMPRESSION: Normal appearance of the gallbladder.
--- NOTE | ~2020-10-24 | CT_ITS ---
EXAMINATION: CT ABDOMEN AND PELVIS WITH CONTRAST CLINICAL INFORMATION: RUQ pain, constant and worsening since appendectomy 10/02/20 COMPARISON: CT abdomen and pelvis 10/02/2020 TECHNIQUE: Multidetector volumetric images were obtained from the superior aspect of the liver through the pubic symphysis following administration 85 mL of Omnipaque 350 intravenous contrast. Sagittal and coronal reformatted images were obtained on the technologist's workstation. Oral contrast: No This CT examination was performed using dose optimization techniques as appropriate, variously including the following: *Automated exposure control *Adjustment of mA and/or kV according to patient size (this includes techniques or standardized protocols for targeted exams where dose is matched to indication/reason for exam; i.e. extremities or head) *Use of iterative reconstruction technique DLP: 598 mGy-cm FINDINGS: LUNG BASES: The visualized lung bases are unremarkable. LIVER, GALLBLADDER, AND BILIARY TREE: The liver is normal in size, shape, and attenuation. No focal hepatic lesion or biliary ductal dilatation is present. The gallbladder is contracted but otherwise unremarkable with no evidence of radiopaque gallstones, gallbladder wall thickening, or obvious pericholecystic inflammatory changes. PANCREAS: Unremarkable. SPLEEN: Unremarkable. ADRENAL GLANDS: Unremarkable. KIDNEYS AND URETERS: The kidneys are normal in size, shape, and attenuation. No hydronephrosis, hydroureter, or calculi seen. No perinephric stranding. BLADDER: Unremarkable. GASTROINTESTINAL TRACT: Since the prior exam the appendix has been removed and there is surgical material in the region of resection. There is a small amount of fluid remaining in the paracolic gutter on the right fairly similar to that which was present previously (see talamantes images). Diverticular changes are present in the colon without diverticulitis. The small and large bowel are otherwise unremarkable. ABDOMINAL WALL: No significant hernia is appreciated. LYMPH NODES: Prominent left para-aortic lymph nodes are unchanged. No gross lymphadenopathy is present. VASCULAR: Unremarkable. PELVIC VISCERA: Unremarkable. OSSEOUS STRUCTURES: Unremarkable. CT/CT abdomen pelvis w con IMPRESSION: An etiology for the patient's continued worsening contrast right upper quadrant pain since appendectomy has not been found. A small amount of fluid remains in the right paracolic gutter. A discrete abscess is not present.
[2020-10-24 19:44] VITALS: BP 122/83; PULSE 74; RESP 18; TEMP 37; O2SAT 100; BMI 26.9
[2020-10-24 20:03] LABS: MANUAL DIFF FLAG NO
[2020-10-24 20:04] LABS: Basophils Percent Auto 0.4 % (0-2); Eosinophils Absolute Auto 0.4 X10*3/uL (0.0-0.4); Eosinophils Percent Auto 5.7 % (0-4); Hematocrit 40.5 % (42-52); Hemoglobin 13.7 g/dl (14.0-18.0); Imm Gran Abs Auto 0.01 X10*3/uL (0.00-0.03); Imm Gran Pct Auto 0.1 % (0.0-0.4); Lymphocytes Absolute Auto 2.2 X10*3/uL (1.2-4.9); Lymphocytes Percent Auto 30.2 % (20-40); Mean Corpuscular HGB Conc 33.8 g/dl (31.0-36.0); Mean Corpuscular Volume 88.6 fL (80-98); Mean Platelet Volume 10.1 fL (9.4-12.4); Monocytes Absolute Auto 0.6 X10*3/uL (0.1-1.2); Neutrophils Absolute Auto 4.1 X10*3/uL (2.0-8.3); Neutrophils Percent Auto 55.6 % (45-73); Platelet Count 227 X10*3/uL (160-400); Red Blood Count 4.57 X10*6/uL (4.60-5.80); Red Cell Distribution Width 12.5 % (11.0-16.0); White Blood Count 7.3 X10*3/uL (4.8-10.8)
[2020-10-24 20:28] LABS: Alanine Aminotransferase 13 U/L (0-40); Albumin Level 4.6 g/dL (3.5-5.0); Alkaline Phosphatase 49 U/L (39-117); Anion Gap 13 (12-20); Aspartate Amino Transferase 14 U/L (5-37); Bilirubin Direct 0.2 mg/dL (0.0-0.5); Bilirubin Total 0.4 mg/dL (0.0-1.0); Blood Urea Nitrogen 15 mg/dL (9-16); Calcium 9.3 mg/dL (8.4-10.2); Carbon Dioxide 27 mmol/L (22-29); Chloride 102 mmol/L (96-108); Creatinine Clr Calc Pharmacy 127.1; Estimated Glomerular Filt Rate > 60; Glucose Random 97 mg/dL (60-115); Potassium 3.9 mmol/L (3.3-5.1); Sodium 138 mmol/L (135-145); Total Protein 7.3 g/dL (6.5-8.0)
[2020-10-24 21:49] VITALS: BP 134/70; PULSE 57; RESP 15; TEMP 36.6; O2SAT 99
--- NOTE | 2020-10-24 21:58 | ED_ITS ---
HPI - Abdominal Pain General Chief Complaint: Abdominal Pain Stated Complaint: abdominal pain Time Seen by Provider: 10/24/20 21:43 Source: patient Mode of arrival: ambulatory Limitations: no limitations History of Present Illness HPI narrative: Patient comes to emergency room complaining of right upper quadrant pain. Patient states on October 02 he had an appendectomy. Patient states that during his hospital stay, he noticed that he had right upper quadrant pain, constant, 4/10, radiating towards the right shoulder. Patient states initially he thought it was due to the CO2 that is used for the laparoscopic appendectomy. However, the pain is constant, seems that today might have worsened after eating chicken sandwich. Patient denies vomiting or diarrhea. At this time, patient declined medication for pain or nausea. Patient states that otherwise he has been recovering well from his laparoscopic appendectomy Related Data Home Medications Medication Instructions Recorded Confirmed No Known Home Meds 10/02/20 10/02/20 Allergies Allergy/AdvReac Type Severity Reaction Status Date / Time Sulfa (Sulfonamide Allergy Unknown UNKNOWN Verified 10/02/20 10:49 Antibiotics) [SULFA (SULFONAMIDE ANTIBIOTICS)] Review of Systems Review of Systems Constitutional : No Weight loss, No Fever, No Chills, No Night Sweats, No Fatigue, No Malaise ENT/Mouth : No Hearing loss, No Ear Pain, No Nasal Congestion, No Sinus Pain, No Hoarseness, No sore throat, No Rhinorrhea, No Swallowing Difficulty Eyes: No Eye Pain, No Swelling, No Redness, No Foreign Body, No Discharge, No Vision Changes Cardiovascular : No Chest Pain, No SOB, No Dyspnea on Exertion, No Orthopnea, No Edema, No Palpitations Respiratory : No Cough, No Sputum, No Wheezing, No Smoke Exposure, No Dyspnea Gastrointestinal : No Nausea, No Vomiting, No Diarrhea, No Constipation, complaining of right upper quadrant pain radiating towards the right shoulder, No Hematochezia, No Melena Genitourinary : no irregular bleeding, No Dysuria, No Urinary Frequency, No H ematuria, No Urinary Incontinence, No Urgency, No Flank Pain, No Urinary Flow Changes, No Hesitancy Musculoskeletal : No joint pain, No Myalgias, No Joint Swelling Skin : No Skin Lesions, No rash Neuro : No Weakness, No Numbness, No Paresthesias, No Loss of Consciousness, No Dizziness, No Headache Psych : No Anxiety/Panic, No Depression, No SI/HI/AH/VH, No Social Issues, Heme/Lymph: No Bruising, No Bleeding,No Lymphadenopathy Endocrine : No Polyuria, No Polydipsia, No Temperature Intolerance Physical Exam Vital Signs: Vital Signs: Last Vital Signs Temp 97.8 F 10/25/20 00:46 Pulse 66 10/25/20 00:46 Resp 16 10/25/20 00:46 BP 123/72 10/25/20 00:46 Pulse Ox 98 10/25/20 00:46 Body Mass Index 26.9 Appearance: Alert. Oriented X3. No acute distress. Eyes: Pupils equal, round and reactive to light. ENT: Pharynx normal. Neck: Normal inspection. Neck supple. No lymph nodes noted. No crepitus CVS: Normal heart rate and rhythm. Pulses normal. Normal S1 and S2 Respiratory: No respiratory distress. Breath sounds normal. No Wheezing. No rales Abdomen: Soft , mild tenderness in right upper quadrant, mild positive Dumont sign. No rigidity. No distention. Skin: Skin warm and dry. Normal skin color. Normal skin turgor. Extremities: No lower extremity edema. No lower extremity edema. No Lacerations. No Rash Neuro: Oriented X 3. No motor deficit. No sensory deficit. Moving all extermities. No slurred speech. Course Course Course Narrative: I discussed the CT with the patient, no acute findings, patient declined any pain or nausea medication. Ultrasound will be done. I discussed the labs and imaging with the patient, no acute findings. Patient will call Dr. Avila tomorrow or Thursday for follow-up. MDM - Abdominal Pain Lab Data Result diagrams: 10/24/20 22:23 10/24/20 22:23 Labs: Lab Results 10/24/20 10/24/20 10/24/20 Range/Units 19:57 19:57 19:57 WBC 7.3 (4.8-10.8) X10*3/uL RBC 4.57 L (4.60-5.80) X10*6/uL Hgb 13.7 L (14.0-18.0) g/dl Hct 40.5 L (42-52) % MCV 88.6 (80-98) fL MCH 30.0 (27.0-33.0) pg MCHC 33.8 (31.0-36.0) g/dl RDW 12.5 (11.0-16.0) % Plt Count 227 (160-400) X10*3/uL MPV 10.1 (9.4-12.4) fL Immature Gran % (Auto) 0.1 (0.0-0.4) % Neut % (Auto) 55.6 (45-73) % Lymph % (Auto) 30.2 (20-40) % Hampton % (Auto) 8.0 (2-11) % Eos % (Auto) 5.7 H (0-4) % Baso % (Auto) 0.4 (0-2) % Lymph # (Auto) 2.2 (1.2-4.9) X10*3/uL Hampton # (Auto) 0.6 (0.1-1.2) X10*3/uL Eos # (Auto) 0.4 (0.0-0.4) X10*3/uL Baso # (Auto) 0.0 (0.0-0.2) X10*3/uL Abs Immat Gran (auto) 0.01 (0.00-0.03) X10*3/uL Absolute Neuts (auto) 4.1 (2.0-8.3) X10*3/uL Absolute Nucleated RBC 0.000 (0.0-0.012) X10*3/uL Nucleated RBC % (auto) 0.0 (0.0-0.2) /100WBC Hold Blue Top SEE NOTE Sodium 138 (135-145) mmol/L Potassium 3.9 (3.3-5.1) mmol/L Chloride 102 (96-108) mmol/L Carbon Dioxide 27 (22-29) mmol/L Anion Gap 13 (12-20) BUN 15 (9-16) mg/dL Creatinine 0.97 (0.5-1.4) mg/dL Estim Creat Clear Calc 127.1 Estimated GFR > 60 Random Glucose 97 (60-115) mg/dL Calcium 9.3 (8.4-10.2) mg/dL Total Bilirubin 0.4 (0.0-1.0) mg/dL Direct Bilirubin 0.2 (0.0-0.5) mg/dL AST 14 (5-37) U/L ALT 13 (0-40) U/L Alkaline Phosphatase 49 D (39-117) U/L Total Protein 7.3 (6.5-8.0) g/dL Albumin 4.6 (3.5-5.0) g/dL Lipase (8-78) U/L 10/24/20 10/24/20 10/24/20 Range/Units 22:23 22:23 22:23 WBC 7.6 (4.8-10.8) X10*3/uL RBC 4.40 L (4.60-5.80) X10*6/uL Hgb 13.2 L (14.0-18.0) g/dl Hct 39.3 L (42-52) % MCV 89.3 (80-98) fL MCH 30.0 (27.0-33.0) pg MCHC 33.6 (31.0-36.0) g/dl RDW 12.6 (11.0-16.0) % Plt Count 214 (160-400) X10*3/uL MPV 9.9 (9.4-12.4) fL Immature Gran % (Auto) 0.3 (0.0-0.4) % Neut % (Auto) 53.7 (45-73) % Lymph % (Auto) 30.8 (20-40) % Hampton % (Auto) 8.8 (2-11) % Eos % (Auto) 5.9 H (0-4) % Baso % (Auto) 0.5 (0-2) % Lymph # (Auto) 2.3 (1.2-4.9) X10*3/uL Hampton # (Auto) 0.7 (0.1-1.2) X10*3/uL Eos # (Auto) 0.5 H (0.0-0.4) X10*3/uL Baso # (Auto) 0.0 (0.0-0.2) X10*3/uL Abs Immat Gran (auto) 0.02 (0.00-0.03) X10*3/uL Absolute Neuts (auto) 4.1 (2.0-8.3) X10*3/uL Absolute Nucleated RBC 0.000 (0.0-0.012) X10*3/uL Nucleated RBC % (auto) 0.0 (0.0-0.2) /100WBC Hold Blue Top Sodium 138 (135-145) mmol/L Potassium 4.3 (3.3-5.1) mmol/L Chloride 103 (96-108) mmol/L Carbon Dioxide 26 (22-29) mmol/L Anion Gap 13 (12-20) BUN 16 (9-16) mg/dL Creatinine 0.86 (0.5-1.4) mg/dL Estim Creat Clear Calc 143.3 Estimated GFR > 60 Random Glucose 91 (60-115) mg/dL Calcium 9.3 (8.4-10.2) mg/dL Total Bilirubin 0.4 (0.0-1.0) mg/dL Direct Bilirubin 0.2 (0.0-0.5) mg/dL AST 12 (5-37) U/L ALT 11 (0-40) U/L Alkaline Phosphatase 47 (39-117) U/L Total Protein 6.7 (6.5-8.0) g/dL Albumin 4.3 (3.5-5.0) g/dL Lipase 24 (8-78) U/L Imaging Data CT scan - abdomen: Radiologist's impression: FINDINGS: LUNG BASES: The visualized lung bases are unremarkable. LIVER, GALLBLADDER, AND BILIARY TREE: The liver is normal in size, shape, and attenuation. No focal hepatic lesion or biliary ductal dilatation is present. The gallbladder is contracted but otherwise unremarkable with no evidence of radiopaque gallstones, gallbladder wall thickening, or obvious pericholecystic inflammatory changes. PANCREAS: Unremarkable. SPLEEN: Unremarkable. ADRENAL GLANDS: Unremarkable. KIDNEYS AND URETERS: The kidneys are normal in size, shape, and attenuation. No hydronephrosis, hydroureter, or calculi seen. No perinephric stranding. BLADDER: Unremarkable. GASTROINTESTINAL TRACT: Since the prior exam the appendix has been removed and there is surgical material in the region of resection. There is a small amount of fluid remaining in the paracolic gutter on the right fairly similar to that which was present previously (see talamantes images). Diverticular changes are present in the colon without diverticulitis. The small and large bowel are otherwise unremarkable. ABDOMINAL WALL: No significant hernia is appreciated. LYMPH NODES: Prominent left para-aortic lymph nodes are unchanged. No gross lymphadenopathy is present. VASCULAR: Unremarkable. PELVIC VISCERA: Unremarkable. OSSEOUS STRUCTURES: Unremarkable. CT/CT abdomen pelvis w con IMPRESSION: An etiology for the patient's continued worsening contrast right upper quadrant pain since appendectomy has not been found. A small amount of fluid remains in the right paracolic gutter. A discrete abscess is not present. US - abdomen: Radiologist's impression: GALLBLADDER: Normal. The gallbladder is physiologically distended without evidence of stones, sludge, polyps, wall thickening or pericholecystic fluid. COMMON BILE DUCT: Normal in caliber measuring 0.3 cm in diameter. FREE FLUID: None. US/US abdomen limited IMPRESSION: Normal appearance of the gallbladder. Discharge Plan Discharge Clinical Impression: Abdominal pain Qualifiers: Abdominal location: right upper quadrant Qualified Code(s): R10.11 - Right upper quadrant pain Patient Disposition: Home, Self-Care Instructions: Abdominal Pain (ED) Prescriptions: No Action No Known Home Meds RF: 0 Referrals: Gavin Avila MD [Physician] - 2 days [facility] Past Medical History Medical History No active medical problems Surgical History History of kidney surgery S/P laparoscopic appendectomy Social History Social History Household Members: Family Housing: House Alcohol intake: unknown Smoking Status: Current some day smoker Advance Directives: No Advance Directives Information Provided: Yes service: No Current occupational status: employed
[2020-10-24 22:28] LABS: Basophils Percent Auto 0.5 % (0-2); Eosinophils Absolute Auto 0.5 X10*3/uL (0.0-0.4); Eosinophils Percent Auto 5.9 % (0-4); Hematocrit 39.3 % (42-52); Hemoglobin 13.2 g/dl (14.0-18.0); Imm Gran Abs Auto 0.02 X10*3/uL (0.00-0.03); Imm Gran Pct Auto 0.3 % (0.0-0.4); Lymphocytes Absolute Auto 2.3 X10*3/uL (1.2-4.9); Lymphocytes Percent Auto 30.8 % (20-40); Mean Corpuscular HGB Conc 33.6 g/dl (31.0-36.0); Mean Corpuscular Volume 89.3 fL (80-98); Mean Platelet Volume 9.9 fL (9.4-12.4); Monocytes Absolute Auto 0.7 X10*3/uL (0.1-1.2); Monocytes Percent Auto 8.8 % (2-11); Neutrophils Absolute Auto 4.1 X10*3/uL (2.0-8.3); Neutrophils Percent Auto 53.7 % (45-73); Platelet Count 214 X10*3/uL (160-400); Red Cell Distribution Width 12.6 % (11.0-16.0); White Blood Count 7.6 X10*3/uL (4.8-10.8)
[2020-10-24 22:29] LABS: MANUAL DIFF FLAG NO
[2020-10-24 22:52] LABS: Anion Gap 13 (12-20); Blood Urea Nitrogen 16 mg/dL (9-16); Calcium 9.3 mg/dL (8.4-10.2); Carbon Dioxide 26 mmol/L (22-29); Chloride 103 mmol/L (96-108); Creatinine Clr Calc Pharmacy 143.3; Estimated Glomerular Filt Rate > 60; Glucose Random 91 mg/dL (60-115); Potassium 4.3 mmol/L (3.3-5.1); Sodium 138 mmol/L (135-145)
[2020-10-24 22:54] LABS: Alanine Aminotransferase 11 U/L (0-40); Albumin Level 4.3 g/dL (3.5-5.0); Alkaline Phosphatase 47 U/L (39-117); Aspartate Amino Transferase 12 U/L (5-37); Bilirubin Direct 0.2 mg/dL (0.0-0.5); Bilirubin Total 0.4 mg/dL (0.0-1.0); Lipase 24 U/L (8-78); Total Protein 6.7 g/dL (6.5-8.0)
[2020-10-24] MEDS: iohexoL 350 MG/ML 100 ML INFUS..BTL 85 ML IV (23:34)
[2020-10-25 00:46] VITALS: BP 123/72; PULSE 66; RESP 16; TEMP 36.6; O2SAT 98
== END 2020-10-25 03:26 | disposition home or self-care (01) ==
PROVIDERS: Emergency Provider Emergency Medicine; PCP Physician Assistant
DX: R10.11 Right upper quadrant pain (principal); F17.200 Nicotine dependence, unspecified, uncomplicated
CPT/HCPCS: 36415; 74177; 76705; 80048; 80053; 80076; 83690; 85025; 99284; Q9967

== ENCOUNTER 2023-10-12 09:29 | Outpatient (AMB) | payer OTHER, SELFPAY ==
--- NOTE | 2023-10-12 09:41 | MHC.PC.OV ---
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 Patient reports L knee pain, unable to focus on tasks- more noticeable at work- but also throughout the day, and testosterone replacement therapy. 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 Dr Barroso at [facility] Last office visit/CPE: Acute issue(s): L knee Dif focusing ? Low T - Fatigue PMHx: None SurgHx: R ureteral Deformity & Stent. Appy FHx: Mom: Factor V Leiden. Dad: Prostate problem & surgery. GF: Heart problems. SocHx: No Cigs. EtOH: 12 per month. 1-2 per day max. MJ daily No other drugs PFSH Medical History (Updated 10/12/23 @ 10:41 by Skip Salvador) History of stent insertion of renal artery No active medical problems Surgical History S/P laparoscopic appendectomy History of kidney surgery Family History (Updated 10/12/23 @ 10:02 by Tonie Sheikh CMA) Mother Clotting disorder Maternal Grandfather Cardiovascular disease Social History (Updated 10/12/23 @ 09:57 by Tonie Sheikh CMA) Household Members: Spouse and Children Household Members Other:: 3 kids Both parents involved: No Caregiver staying overnight: No Housing: House Are you a primary pet caregiver to a significant other at home: No Do you presently have visiting nurse or other home services: No 75 years or older and lives alone: No Alcohol intake: current Alcohol intake frequency: a few times a month Alcohol type: beer and hard liquor Comment: Whisky Patient Tobacco Use Status: Former Tobacco user Tobacco use type: Cigar and Pipe Years Smoked: >1 YEAR e-Cigarette/Vaping Use: Former Use Frequency of e-Cigarette/Vaping Use: Marijuana Vape Occasionally Use of substances other than those prescribed or required for medical reasons: Yes Substance Use Type: Marijuana Substance Use Frequency: Occasionally Have you been hit, kicked, punched, or otherwise hurt by someone within the past year? 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 1. Little interest or pleasure in doing things: not at all 2. Feeling down, depressed, or hopeless: not at all 3. Trouble falling or staying asleep, or sleeping too much: not at all 4. Feeling tired or having little energy: several days 5. Poor appetite or overeating: not at all 6. Feeling bad about yourself - or that you are a failure or have let yourself or your family down: several days 7. Trouble concentrating on things, such as reading the newspaper or watching television: nearly every day 8. Moving or speaking so slowly that other people could have noticed. Or the opposite - being so fidgety or restless that you have been moving around a lot more than usual: not at all 9. Thoughts that you would be better off or of hurting yourself in some way: not at all Total score: 5 Depression Screening Interpretation: Positive Depression Screening Done: Yes 64116 - PHQ-9 Billing: Yes Source: Developed by Manpreet Ledesmaet B.W. Mateus, Suresh Martines and colleagues, with an educational kenneth from [employer]. Thrive Questionnaire Date Thrive assessed: 10/12/23 I am a: Patient What is your living situation today?: I have a steady place to live Within the past 12 months, did the food you bought not last and you didn't have the money to get more?: Never true Within the past 12 months, did you worry whether your food would run out before you got money to buy more?: Never true Do you have trouble paying for medicines?: No Do you have trouble getting transportation to medical appointments?: No Do you have trouble paying your heating and electricity bill?: No Do you have trouble taking care of your child, family member or friend?: No Do you have trouble with day-to-day activities such as bathing, preparing meals, shopping, managing finances, etc.?: No Are you currently unemployed and looking for a job?: No Are you interested in more education?: No Please select the resources that you would like help with: Education Currently or been in a relationship where the following occur: no concerns reported THRIVE Score: 0 AUDIT C Alcohol Use Questionnaire (AUDIT-C) 1. How often do you have a drink containing alcohol?: 2-4 times a month 2. How many drinks containing alcohol do you have on a typical day when you are drinking?: 1 or 2 3. How often do you have six or more drinks on one occasion?: Never Total Score: 2 Score Reviewed/Action Taken: Yes PATTI-7 AMB Questionnaire PATTI-7 Date PATTI - 7 assessed: 10/12/23 Feeling nervous, anxious, or on edge: 2 = More than half the days Not being able to stop or control worryin = More than half the days Worrying too much about different things: 2 = More than half the days Trouble relaxin = More than half the days Being so restless that it is hard to sit still: 2 = More than half the days Becoming easily annoyed or irritable: 2 = More than half the days Feeling afraid as if something awful might happen: 2 = More than half the days Total PATTI-7 score (0-4 normal; 5-9 mild; 10-14 moderate; 15-21 severe): 14 Source: Developed by Drs. Parth Perez, Beatriz Ignacio, Suresh Martines and colleagues, with an educational kenneth from [employer]. PATTI-7 Assessment Billing PATTI-7 Assessment Tool: PATTI-7 Assessment 34196 Review of Systems Const Denies chills, Reports fatigue, Denies fever(s), Denies headache(s) and Denies weakness ENT Denies dizziness and Denies headache(s) Card Denies chest pain, Denies lightheadedness, Denies dyspnea and Denies other (Palpitations) Resp Denies cough, Denies dyspnea, Denies wheezing and Denies other ( shortness of breath) Musc Details: L Knee pain Denies numbness and Denies tingling Neuro Denies dizziness, Denies headache(s), Denies numbness, Denies tingling, Denies paresthesias and Denies weakness Psych Denies anxiety and Denies depression Endo Reports fatigue Aller/Immun Denies wheezing Physical exam (Primary Care) Vital Signs: Last Vital Signs Pulse 66 10/12/23 09:46 Resp 13 10/12/23 09:46 BP 122/62 10/12/23 09:46 Pulse Ox 98 10/12/23 09:46 Oxygen Delivery Method Room Air 10/12/23 09:46 BMI result Body Mass Index 26.3 Tobacco/Smoking Status: Tobacco use Status Tobacco use date assessed 10/12/23 10/12/23 09:55 Patient Tobacco Use Status Former Tobacco user 10/12/23 09:57 Tobacco use type Pipe,Cigar 10/12/23 09:57 e-Cigarette/Vaping Use Former Use 10/12/23 09:57 PHQ-9: PHQ-9 Score PHQ-9: Total score 5 10/12/23 10:18 Depression Screening Interpretation: Positive Thrive Assessment: Date of Thrive Assessment Date Thrive assessed 10/12/23 10/12/23 09:59 Currently or been in a relationship where the following occur: no concerns reported Const General: no acute distress and well developed Nutritional Appearance: well nourished Orientation/consciousness: patient oriented x3 HENMT Head: Yes normocephalic and Yes atraumatic Eyes General: appearance normal, both eyes and all related structures Pupils: Equal, round and reactive pupils present EOM: EOMs intact bilaterally Resp Effort & Inspection: normal respiratory effort Auscultation: clear to auscultation bilaterally Cardio Rate: regular rate Rhythm: regular rhythm Heart sounds: S1 normal heart sound present, S2 normal heart sound present, no gallops, no murmurs and no rubs Neuro General: patient oriented x3 and gait normal Cranial nerves: Yes Equal, round and reactive pupils present Psych Affect: normal affect Assessment and Plan Assessment & Plan (1) Left knee pain: Code(s): M25.562 - Pain in left knee Plan: Left?knee?pain?posterior?to?patellar Check?x-ray Advised?NSAIDs?and?ice Will?follow-up,?may?need?referral?to?Ortho?or?an?order?for?physical?therapy. (2) Fatigue: Code(s): R53.83 - Other fatigue Plan: Patient?would?like?testosterone?checked?and?this?is?ordered Also?checking?CBC,?thyroid?levels,?electrolyte Questioning?regarding?his?sleep?apnea?is?not?convincing?at?this?time (3) Difficulty concentrating: Code(s): R41.840 - Attention and concentration deficit Plan: Complaints?of?difficulty?concentrating Trial?bupropion Referred?to?neuropsych (4) Family history of factor V Leiden mutation: Code(s): Z83.2 - Family history of diseases of the blood and blood-forming organs and certain disorders involving the immune mechanism Plan: No?excessive?bleeding (5) Laboratory exam ordered as part of routine general medical examination: Code(s): Z00.00 - Encounter for general adult medical examination without abnormal findings Plan: Check?labs Orders: Orders Microalbumin, Random (w Creat) Today I10 - Essential (primary) hypertension UA and rflx microscopic Today Z00.00 - Encounter for general adult medical examination without abnormal findings HIV Ab/Ag Today Z11.3 - Encounter for screening for infections with a predominantly sexual mode of transmission Syphilis Screen Today Z11.3 - Encounter for screening for infections with a predominantly sexual mode of transmission XR knee LT 3V Today M25.569 - Pain in unspecified knee Comprehensive [place]. Panel Fast Today Z00.00 - Encounter for general adult medical examination without abnormal findings Lipid Panel Today Z00.00 - Encounter for general adult medical examination without abnormal findings Complete Blood Count Auto Diff Today Z00.00 - Encounter for general adult medical examination without abnormal findings TSH reflex Free T4 Today Z00.00 - Encounter for general adult medical examination without abnormal findings CT NG by PCR Today Z11.3 - Encounter for screening for infections with a predominantly sexual mode of transmission Hepatitis B,C Profile Today Z11.3 - Encounter for screening for infections with a predominantly sexual mode of transmission Testosterone, Free/Total Today E29.1 - Testicular hypofunction Referrals Neuropsychiatry Referral R41.840 - Attention and concentration deficit Medications: New bupropion HCl 75 mg PO DAILY 30 days 30 tabs 1RF Coding Level of Care Code New Pt Level 3 (47660) Diagnoses Left knee pain M25.562 Fatigue R53.83 Difficulty concentrating R41.840 Family history of factor V Leiden mutation Z83.2 Laboratory exam ordered as part of routine general medical examination Z00.00 Additional Codes PATTI-7 Assessment Billing - PATTI-7 Assessment Tool: PATTI-7 Assessment 79881 ([id number])
[2023-10-12 09:46] VITALS: BP 122/62; PULSE 66; RESP 13; O2SAT 98; BMI 26.3
== END 2023-10-12 10:54 | disposition home or self-care (01) ==
PROVIDERS: PCP Physician Assistant; Visit Provider Family Medicine
DX: M25.562 Pain in left knee (principal); R53.83 Other fatigue; R41.840 Attention and concentration deficit; Z83.2 Family history of diseases of the blood and blood-forming organs and certain disorders involving the immune mechanism; Z00.00 Encounter for general adult medical examination without abnormal findings
CPT/HCPCS: 99203

== ENCOUNTER 2023-10-13 07:04 | Outpatient (REF) | payer OTHER, SELFPAY ==
[2023-10-13 11:28] LABS: MANUAL DIFF FLAG NO
[2023-10-13 11:50] LABS: Basophils Percent Auto 0.5 % (0-2); Eosinophils Absolute Auto 0.1 X10*3/uL (0.0-0.4); Hematocrit 40.8 % (42.0-52.0); Hemoglobin 13.7 g/dl (14.0-18.0); Imm Gran Abs Auto 0.01 X10*3/uL (0.00-0.03); Imm Gran Pct Auto 0.2 % (0.0-0.4); Lymphocytes Absolute Auto 1.4 X10*3/uL (1.2-4.9); Lymphocytes Percent Auto 31.9 % (20-40); Mean Corpuscular HGB Conc 33.6 g/dl (31.0-36.0); Mean Corpuscular Hemoglobin 30.3 pg (27.0-33.0); Mean Corpuscular Volume 90.3 fL (80.0-98.0); Mean Platelet Volume 10.8 fL (9.4-12.4); Monocytes Absolute Auto 0.3 X10*3/uL (0.1-1.2); Monocytes Percent Auto 7.6 % (2-11); Neutrophils Absolute Auto 2.5 x10*3/uL (2.0-8.3); Neutrophils Percent Auto 56.8 % (45-73); Platelet Count 211 X10*3/uL (160-400); Red Blood Count 4.52 X10*6/uL (4.60-5.80); Red Cell Distribution Width 13.1 % (11.0-16.0); White Blood Count 4.3 X10*3/uL (4.8-10.8)
[2023-10-13 11:58] LABS: Appearance Urine Clear; Color Urine Yellow; Glucose Urine UA Negative (Negative); Leukocyte Esterase Urine Negative (Negative); Nitrite Urine Negative (Negative); Urine Blood Negative (Negative); Urine Ketones Negative (Negative); Urine Protein Negative (Neg-Trace)
[2023-10-13 14:06] LABS: Creatinine Urine 43.76 mg/dL; Microalbumin Urine < 5.0 mg/L
[2023-10-13 17:55] LABS: Alanine Aminotransferase 13 U/L (0-40); Albumin Level 4.2 g/dL (3.5-5.0); Alkaline Phosphatase 36 U/L (39-117); Anion Gap 10 (12-20); Aspartate Amino Transferase 15 U/L (5-37); Bilirubin Total 0.6 mg/dL (0.0-1.0); Blood Urea Nitrogen 12 mg/dL (9-16); Calcium 8.9 mg/dL (8.4-10.2); Carbon Dioxide 27 mmol/L (22-29); Chloride 105 mmol/L (96-108); Cholesterol 136 mg/dL (<200); Estimated Glomerular Filt Rate > 60; Glucose Fasting 96 mg/dL (60-99); HDL Cholesterol 58 mg/dL (>40); LDL Cholesterol Calculated 72 mg/dL (<100); Potassium 4.2 mmol/L (3.3-5.1); Sodium 138 mmol/L (135-145); Total Protein 6.7 g/dL (6.5-8.0); Triglycerides 34 mg/dL (<150)
[2023-10-13 18:15] LABS: TSH reflex Free T4 1.08 uIU/mL (0.32-4.0)
[2023-10-14 07:53] LABS: Syphilis Screen Nonreactive (Nonreactive)
[2023-10-14 08:38] LABS: HBS Num1 5.65 mIU/mL (0-7.99); HBc Num1 0.15 S/CO (0.00-0.79); HIV AB/AG Nonreactive (Nonreactive); HIV Num 1 0.06 S/CO (0.00-0.99); Hepatitis B Core Antibody Nonreactive (Nonreactive); Hepatitis B Surface Antigen Negative (Negative); ~HepC Num1 0.15 S/CO (0.00-0.79); ~Hepatitis B Surface Antibody NONREACTIVE (Nonreactive); ~Hepatitis C Antibody Nonreactive (Nonreactive)
[2023-10-17 19:09] LABS: Testosterone, Free 85.5 pg/mL (35.0-155.0); Testosterone, Total 643 ng/dL (250-1100)
== END 2023-10-13 07:05 | disposition home or self-care (01) ==
LOC: HO.WFDLDS 07:04
PROVIDERS: Visit Provider Family Medicine
DX: Z00.00 Encounter for general adult medical examination without abnormal findings (principal); Z11.3 Encounter for screening for infections with a predominantly sexual mode of transmission; Z11.4 Encounter for screening for human immunodeficiency virus [HIV]; I10 Essential (primary) hypertension; E29.1 Testicular hypofunction
CPT/HCPCS: 36415; 80053; 80061; 81003; 82043; 82570; 84402; 84403; 84443; 85025; 86704; 86706; 86780; 86803; 87340; 87389

== ENCOUNTER 2023-12-14 10:12 | Outpatient (AMB) | payer OTHER, SELFPAY ==
--- NOTE | 2023-12-14 10:16 | A.OFFPC_ITS ---
Vital Signs 12/14/23 10:17 Height 6 ft 2 in Weight 207 lb 6 oz BMI 26.6 BP 120/64 Blood Pressure Location Rt brachial Position Sitting Pulse 55 Pulse Source Pulse Oximeter Pulse Oximetry (%) 99 Oxygen Delivery Method Room Air Intake Visit Reasons: CPE with f/u labs and health maint. 30 mins Intake Note: Patient is here for his physical today. Allergies Sulfa (Sulfonamide Antibiotics) [SULFA (SULFONAMIDE ANTIBIOTICS)] Allergy (Unknown, Verified 12/14/23 10:19) UNKNOWN Tobacco use date assessed: 12/14/23 Dental Screening Dental Screen Date: 10/12/23 HPI CPE with f/u labs and health maint. 30 mins HPI Details 38 y/o male presents for a CPE with f/u labs and health maintenance. Labs were drawn 10/13/23. Reviewed labs with pt. Mild anemia. Triglycerides 34. TC 136. LDL 72. HDL 58. Pt reports hearing changes on the R side. 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 HPI Comments History of Present Illness Details Documentation assistance for Ruiz Archibald MD, was provided by Skip Salvador,? Disability Examiner on 12/14/2023 at 10:43 AM EST. I, Dr. Archibald, have read, observed, and verified documentation. [facility] Medical History (Updated 12/14/23 @ 10:42 by Skip Salvador) History of stent insertion of renal artery No active medical problems Surgical History S/P laparoscopic appendectomy History of kidney surgery Family History (Updated 10/12/23 @ 10:02 by Tonie Sheikh CMA) Mother Clotting disorder Maternal Grandfather Cardiovascular disease Social History (Updated 10/12/23 @ 09:57 by Tonie Sheikh CMA) Household Members: Spouse and Children Household Members Other:: 3 kids Both parents involved: No Caregiver staying overnight: No Housing: House Are you a primary hourly caregiver to a significant other at home: No Do you presently have visiting nurse or other home services: No 75 years or older and lives alone: No Alcohol intake: current Alcohol intake frequency: a few times a month Alcohol type: beer and hard liquor Comment: Whisky Patient Tobacco Use Status: Former Tobacco user Tobacco use type: Cigar and Pipe Years Smoked: >1 YEAR e-Cigarette/Vaping Use: Former Use Substance Use Type: Marijuana service: No Current occupational status: employed 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 Parth Perez, Beatriz Ignacio, Suresh Martines and colleagues, with an educational kenneth from [email or web address]. Review of Systems Const Denies chills, Denies fatigue, Denies fever(s), Denies headache(s) and Denies weakness Eyes Denies change in vision ENT Denies dizziness, Denies headache(s), Denies hearing loss, Denies nasal congestion, Denies sinus pain, Denies sinus pressure and Denies sore throat Card Denies chest pain, Denies lightheadedness, Denies dyspnea and Denies other (palpitations) Resp Denies cough, Denies dyspnea and Denies wheezing GI Denies abdominal pain, Denies melena, Denies hematochezia, Denies change in bowel habits, Denies dyspepsia and Denies nausea Denies hematuria and Denies dysuria Musc Denies abnormal gait, Denies myalgias, Denies arthralgias, Denies numbness and Denies tingling Skin/Breast Denies rash, Denies unusual bruising and Denies wounds Neuro Denies abnormal gait, Denies dizziness, Denies headache(s), Denies memory loss, Denies numbness, Denies Sensory deficit (Neuro), Denies tingling and Denies weakness Psych Denies anxiety, Denies depression and Denies memory loss Endo Denies cold intolerance, Denies fatigue, Denies heat intolerance, Denies polydipsia and Denies polyuria Sathish/Lymph Denies easy bleeding and Denies easy bruising Aller/Immun Denies wheezing Physical exam (Primary Care) Vital Signs: Last Vital Signs Pulse 55 12/14/23 10:17 BP 120/64 12/14/23 10:17 Pulse Ox 99 12/14/23 10:17 Oxygen Delivery Method Room Air 12/14/23 10:17 BMI result Body Mass Index 26.6 Tobacco/Smoking Status: Tobacco use Status Tobacco use date assessed 12/14/23 12/14/23 10:20 Patient Tobacco Use Status Former Tobacco user 12/14/23 10:17 Tobacco use type Pipe,Cigar 12/14/23 10:17 e-Cigarette/Vaping Use Former Use 12/14/23 10:17 Thrive Assessment: Date of Thrive Assessment Date Thrive assessed 10/12/23 12/14/23 10:17 Const General: no acute distress, well developed, alert and awake Nutritional Appearance: well nourished Orientation/consciousness: patient oriented x3 HENMT Head: Yes normocephalic and Yes atraumatic Ears: hearing grossly normal bilaterally and TM's normal bilaterally General nose exam: Normal external nose present and Normal nares present Mouth: Normal oral and palatal mucosa present and moist mucous membranes Teeth and gingiva: dentition normal Throat: Yes posterior oropharynx normal Eyes General: appearance normal, both eyes and all related structures Pupils: Equal, round and reactive pupils present and Pupil accommodation reflex normal EOM: EOMs intact bilaterally Neck Neck: Yes normal visual inspection, Yes no lymphadenopathy and Yes trachea midline Thyroid: Thyroid normal Carotids: no bruits Lymphatic: no lymphadenopathy noted Chest Chest palpation & inspection: normal inspection of the chest Resp Effort & Inspection: normal respiratory effort Auscultation: clear to auscultation bilaterally Cardio Rate: regular rate Rhythm: regular rhythm Heart sounds: S1 normal heart sound present, S2 normal heart sound present, no gallops, no murmurs and no rubs Bruits: no abdominal aortic bruits and no carotid bruits GI Palpation (GI): No Abdominal aortic bruit present, Soft to palpation, nontender, No hepatosplenomegaly present and No Rebound tenderness present Auscultation: normal bowel sounds General: Yes no CVA tenderness Back/Spine/Pelvis Back: no CVA tenderness Cervical Spine: cervical ROM normal and No Cervical spine tenderness Thoracic/Lumbar Spine: thoraco-lumbar ROM normal, No pain with thoraco-lumbar ROM, No thoracic spinal tenderness and No lumbar spinal tenderness Skin Lesions: no lesions Rashes: no rashes Trauma: no lacerations or abrasions Wounds: no wounds Nails: normal Neuro General: patient oriented x3 Cranial nerves: Yes Equal, round and reactive pupils present Cognition (Neuro): normal cognition Gait exam (Neuro): Normal gait present Motor exam (neuro): 5/5 motor strength present throughout Sensory Exam: No Sensory deficit (Neuro) Deep tendon reflexes (DTR's): Right patellar reflex intensity grade: 2+ and Left patellar reflex intensity grade: 2+ Extrem General: Yes normal to inspection and No edema Psych Appearance: grossly normal Affect: normal affect Attitude: cooperative Thought process: Normal thought process present Assessment and Plan Assessment & Plan (1) Adult general medical exam: Code(s): Z00.00 - Encounter for general adult medical examination without abnormal findings Plan: 38-year-old?male?presents?for?complete?physical?exam (2) Mild anemia: Code(s): D64.9 - Anemia, unspecified Plan: Appears?to?have?a?mild?stable normocytic?anemia Will?repeat?lab?work (3) Change in hearing: Code(s): H91.90 - Unspecified hearing loss, unspecified ear Plan: Subtle?change?in?hearing?at?right?ear?compared?with?lab 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 Check?audiogram (4) Fatigue: Code(s): R53.83 - Other fatigue Plan: Unclear?cause Testosterone?levels?w ere?okay?and?symptoms?not?consistent?with?sleep?apnea?though?we?may?readdress?th is Has?a?very?mild?anemia?but?would?not?expect?this?to?cause?fatigue - rechecking?labs (5) Difficulty concentrating: Code(s): R41.840 - Attention and concentration deficit Plan: Had?referred?patient?to?neuropsychiatry Started?bupropion?and?patient?notes?this?is?helping Continue?bupropion Orders: Orders Basic Metabolic Panel Today D64.9 - Anemia, unspecified, Z00.00 - Encounter for general adult medical examination without abnormal findings Complete Blood Count Auto Diff Today D64.9 - Anemia, unspecified, Z00.00 - Encounter for general adult medical examination without abnormal findings Vitamin B12 and Folate Today D64.9 - Anemia, unspecified, E53.8 - Deficiency of other specified B group vitamins IRON PROFILE Today D64.9 - Anemia, unspecified Reticulocyte Count Today D64.9 - Anemia, unspecified Referrals Audiology Referral H91.90 - Unspecified hearing loss, unspecified ear Coding Level of Care Code Est Pt Level 3 (39173) Est Pt Prev Care 18-39y(58082) Diagnoses Adult general medical exam Z00.00 Mild anemia D64.9 Change in hearing H91.90 Fatigue R53.83 Difficulty concentrating R41.840
[2023-12-14 10:17] VITALS: BP 120/64; PULSE 55; O2SAT 99; BMI 26.6
== END 2023-12-14 10:47 | disposition home or self-care (01) ==
PROVIDERS: PCP Physician Assistant; Visit Provider Family Medicine
DX: Z00.00 Encounter for general adult medical examination without abnormal findings (principal); D64.9 Anemia, unspecified; H91.91 Unspecified hearing loss, right ear; R53.83 Other fatigue; R41.840 Attention and concentration deficit
CPT/HCPCS: 99395

== ENCOUNTER 2024-02-10 07:58 | Outpatient (REF) | payer OTHER, SELFPAY ==
[2024-02-10 12:09] LABS: MANUAL DIFF FLAG NO
[2024-02-10 12:42] LABS: Anion Gap 10 (12-20); Blood Urea Nitrogen 14 mg/dL (9-16); Carbon Dioxide 27 mmol/L (22-29); Chloride 107 mmol/L (96-108); Estimated Glomerular Filt Rate > 60; Glucose Random 91 mg/dL (60-115); Iron 82 mcg/dL (45-160); Percent Iron Saturation 31 % (15-50); Potassium 4.4 mmol/L (3.3-5.1); Sodium 140 mmol/L (135-145); Total Iron Binding Capacity 261 mcg/dL (228-428); Unsaturated Iron Binding 179 ug/dL
[2024-02-10 13:11] LABS: Folate 11.6 ng/mL (> or = 4.0); Vitamin B12 376 pg/mL (200-900)
[2024-02-10 13:36] LABS: Basophils Percent Auto 0.7 % (0-2); Eosinophils Absolute Auto 0.3 X10*3/uL (0.0-0.4); Eosinophils Percent Auto 6.6 % (0-4); Hematocrit 42.2 % (42.0-52.0); Hemoglobin 14.2 g/dl (14.0-18.0); Imm Gran Abs Auto 0.01 X10*3/uL (0.00-0.03); Imm Gran Pct Auto 0.2 % (0.0-0.4); Lymphocytes Absolute Auto 1.4 X10*3/uL (1.2-4.9); Lymphocytes Percent Auto 30.8 % (20-40); Mean Corpuscular HGB Conc 33.6 g/dl (31.0-36.0); Mean Corpuscular Hemoglobin 30.5 pg (27.0-33.0); Mean Corpuscular Volume 90.8 fL (80.0-98.0); Mean Platelet Volume 10.6 fL (9.4-12.4); Monocytes Absolute Auto 0.4 X10*3/uL (0.1-1.2); Monocytes Percent Auto 8.1 % (2-11); Neutrophils Absolute Auto 2.4 x10*3/uL (2.0-8.3); Neutrophils Percent Auto 53.6 % (45-73); Platelet Count 210 X10*3/uL (160-400); Red Blood Count 4.65 X10*6/uL (4.60-5.80); Red Cell Distribution Width 13.3 % (11.0-16.0); Retic HGB Equivalent 35.1 pg (30.0-35.0); Reticulocyte Percent 1.2 % (0.5-1.8); Reticulocytes Absolute 0.056 X10*6/uL (0.026-0.095); White Blood Count 4.5 X10*3/uL (4.8-10.8)
== END 2024-02-10 07:59 | disposition home or self-care (01) ==
LOC: HO.WFDLDS 07:58
PROVIDERS: Visit Provider Family Medicine
DX: Z00.00 Encounter for general adult medical examination without abnormal findings (principal); D64.9 Anemia, unspecified; E53.8 Deficiency of other specified B group vitamins
CPT/HCPCS: 36415; 80048; 82607; 82746; 83540; 85025; 85045

== ENCOUNTER 2024-03-14 08:57 | Outpatient (AMB) | payer OTHER, SELFPAY ==
--- NOTE | 2024-03-14 08:52 | MHC.PC.OV ---
Intake Visit Reasons: F/U labs and anemia Intake Note: Patient is following up with lab results. Patient would also like to ask about his knee's- possible imaging. 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 Labs drawn 02/10/24. Reviewed labs with pt. Mild anemia improved to normal ranges. He notes neuropsych has not contacted him yet for difficulty concentrating. [facility] Medical History (Updated 12/14/23 @ 10:42 by Skip Salvador) History of stent insertion of renal artery No active medical problems Surgical History S/P laparoscopic appendectomy History of kidney surgery Family History (Updated 10/12/23 @ 10:02 by Tonie Sheikh CMA) Mother Clotting disorder Maternal Grandfather Cardiovascular disease Social History (Updated 10/12/23 @ 09:57 by Tonie Sheikh CMA) Household Members: Spouse and Children Household Members Other:: 3 kids Both parents involved: No Caregiver staying overnight: No Housing: House Are you a primary home child care provider to a significant other at home: No Do you presently have visiting nurse or other home services: No 75 years or older and lives alone: No Alcohol intake: current Alcohol intake frequency: a few times a month Alcohol type: beer and hard liquor Comment: Whisky Patient Tobacco Use Status: Former Tobacco user Tobacco use type: Cigar and Pipe Years Smoked: >1 YEAR e-Cigarette/Vaping Use: Former Use Substance Use Type: Marijuana service: No Current occupational status: employed 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 How many drinks containing alcohol do you have on a typical day when you are drinking?: 1 or 2 3. How often do you have six or more drinks on one occasion?: Less than monthly Total Score: 1 PATTI-7 AMB Questionnaire PATTI-7 Date PATTI - 7 assessed: 10/12/23 Source: Developed by Drs. Parth Perez, Beatriz Ignacio, Suresh Martines and colleagues, with an educational kenneth from [employer]. Physical exam (Primary Care) Tobacco/Smoking Status: Tobacco use Status Tobacco use date assessed 12/14/23 03/14/24 08:55 Patient Tobacco Use Status Former Tobacco user 03/14/24 08:55 Tobacco use type Pipe,Cigar 03/14/24 08:55 e-Cigarette/Vaping Use Former Use 03/14/24 08:55 Thrive Assessment: Date of Thrive Assessment Date Thrive assessed 10/12/23 03/14/24 08:55 Telehealth Telehealth Telehealth Platform: Telephone Location of provider rendering services: practice address Location of patient: address on file Patient Identification confirmed using: Name, : Yes Telehealth method: voice only Patient verbally consented to treatment: Yes Patient verbally consented to billing insurance company: Yes Patient informed of any privacy concerns related to visit: Yes Minutes spent on Phone/Video with Pt.: 3 Assessment and Plan Assessment & Plan (1) Mild anemia: Code(s): D64.9 - Anemia, unspecified Plan: Anemia?has?resolved. Iron?levels?and?B12?levels?are?okay?as?well Retic?count?is?appropriate Reassured?patient:??No?concerns?but?we?can?check?this?periodically. 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
== END 2024-03-14 16:56 | disposition home or self-care (01) ==
LOC: HO.HMCFM 08:57
PROVIDERS: PCP Family Medicine; Visit Provider Family Medicine
DX: D64.9 Anemia, unspecified (principal); R41.840 Attention and concentration deficit; H91.90 Unspecified hearing loss, unspecified ear

== ENCOUNTER → 2024-03-14 08:57 | Outpatient (BNVA) | payer OTHER, SELFPAY | PROVIDERS: PCP Family Medicine; Visit Provider Family Medicine ==

== ENCOUNTER 2024-06-30 08:37 | Outpatient (REF) | payer OTHER, SELFPAY ==
--- NOTE | ~2024-06-30 | XR_ITS ---
CLINICAL HISTORY: M25.569 - Pain in unspecified knee 3 views left knee Comparison: None Findings: No fractures, subluxations or dislocations. Joint intervals are preserved. No osteochondral lesions or loose bodies. Normal patellar alignment. No suprapatellar joint effusion.No prepatellar soft tissue swelling. Normal bone mineralization and soft tissues. No unusual radiopaque foreign body. Impression: 1. Normal left knee. This document has been electronically signed by: Prieto Portillo MD on 06/30/2024 11:28:59
== END 2024-06-30 08:38 | disposition home or self-care (01) ==
LOC: HO.XRAY 08:37
PROVIDERS: PCP Family Medicine; Visit Provider Family Medicine
DX: M25.562 Pain in left knee (principal)
CPT/HCPCS: 73562

== ENCOUNTER → 2024-06-30 08:42 | Outpatient (BNV) | payer OTHER, SELFPAY | PROVIDERS: PCP Family Medicine; Visit Provider Radiology Diagnostic Radiology | DX: M25.562 Pain in left knee (principal) | CPT/HCPCS: 73562 ==

== ENCOUNTER 2024-08-08 08:39 | Outpatient (AMB) | payer OTHER, SELFPAY ==
--- NOTE | 2024-08-08 08:37 | A.OFFPC_ITS ---
Intake Visit Reasons: Results Knee X-Ray *[phone] * Iphone Allergies Sulfa (Sulfonamide Antibiotics) [SULFA (SULFONAMIDE ANTIBIOTICS)] Allergy (Unknown, Verified 08/08/24 08:37) UNKNOWN Medication List - Last Reconciled 08/08/24 by Ruiz Archibald MD bupropion HCl 75 mg PO DAILY 30 days Tobacco use date assessed: 12/14/23 Dental Screening Dental Screen Date: 10/12/23 HPI Results Knee X-Ray *[phone] * Iphone HPI Details 38 y/o male presents to f/u knee pain, d ifficulty concentrating via telemedicine. Had referred him to neuropsychiatry for difficulty concentrating. He is on bupropion. Knee x-ray 06/30/24 showed normal L knee. He reports ongoing sharp pain which worsens when going down the stairs or down a hill. He notes he has not heard back from neuropsych yet. Continues to use bupropion which continues to help. [facility] Medical History (Updated 12/14/23 @ 10:42 by Skip Salvador) History of stent insertion of renal artery No active medical problems Surgical History S/P laparoscopic appendectomy History of kidney surgery Family History (Updated 10/12/23 @ 10:02 by Tonie Sheikh CMA) Mother Clotting disorder Maternal Grandfather Cardiovascular disease Social History (Updated 10/12/23 @ 09:57 by Tonie Sheikh CMA) Household Members: Spouse and Children Household Members Other:: 3 kids Both parents involved: No Caregiver staying overnight: No Housing: House Are you a primary home care manager rn to a significant other at home: No Do you presently have visiting nurse or other home services: No 75 years or older and lives alone: No Alcohol intake: current Alcohol intake frequency: a few times a month Alcohol type: beer and hard liquor Comment: Whisky Patient Tobacco Use Status: Former Tobacco user Tobacco use type: Cigar and Pipe Years Smoked: >1 YEAR e-Cigarette/Vaping Use: Former Use Substance Use Type: Marijuana service: No Current occupational status: employed 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 How many drinks containing alcohol do you have on a typical day when you are drinking?: 3 or 4 3. How often do you have six or more drinks on one occasion?: Less than monthly Total Score: 2 PATTI-7 AMB Questionnaire PATTI-7 Date PATTI - 7 assessed: 10/12/23 Source: Developed by Drs. Parth Perez, Beatriz Ignacio, Suresh Martines and colleagues, with an educational kenneth from [employer]. Review of Systems Const Denies chills, Denies fatigue, Denies fever(s), Denies headache(s) and Denies weakness ENT Denies dizziness and Denies headache(s) Card Denies dyspnea Resp Denies cough, Denies dyspnea, Denies wheezing and Denies other (shortness of breath) Musc Denies numbness and Denies tingling Neuro Denies dizziness, Denies headache(s), Denies numbness, Denies tingling and Denies weakness Psych Denies anxiety and Denies depression Endo Denies fatigue Aller/Immun Denies wheezing Physical exam (Primary Care) Tobacco/Smoking Status: Tobacco use Status Tobacco use date assessed 12/14/23 08/08/24 08:39 Patient Tobacco Use Status Former Tobacco user 08/08/24 08:39 Tobacco use type Pipe,Cigar 08/08/24 08:39 e-Cigarette/Vaping Use Former Use 08/08/24 08:39 Thrive Assessment: Date of Thrive Assessment Date Thrive assessed 10/12/23 08/08/24 08:39 Telehealth Telehealth Telehealth Platform: Telephone Location of provider rendering services: practice address Location of patient: address on file Patient Identification confirmed using: Name, : Yes Telehealth method: voice only Patient verbally consented to treatment: Yes Patient verbally consented to billing insurance company: Yes Patient informed of any privacy concerns related to visit: Yes Minutes spent on Phone/Video with Pt.: 6 Coding Level of Care Code Tele Est Pt Level 2 (22880) Diagnoses Left knee pain M25.562 Difficulty concentrating R41.840 Change in hearing H91.90 Assessment & Plan Assessment & Plan (1) Left knee pain: Code(s): M25.562 - Pain in left knee Category: Medical Plan: Ongoing?left?knee?pain. Patient?has?tried?NSAIDs?and?ice/heat Has?had?pain?ongoing?since?September 2023 Referred?to?Ortho (2) Difficulty concentrating: Code(s): R41.840 - Attention and concentration deficit Category: Medical Plan: And?referred?patient?to?learning?solutions?in?[place]?for?evaluation. He?says?he?has?not?been?called?back.??I?have?given?him?their?phone?number He?has?akins d?some?improvement?with?bupropion?and?would?like?to?continue?this.??Refilled?scr ipt. (3) Change in hearing: Code(s): H91.90 - Unspecified hearing loss, unspecified ear Category: Medical Plan: Had?referred?patient?to?audiology He?has?not?been?contacted Recent?referral?and?gave?patient?who?number We?can?follow-up?on?report?at?visit?if?available Orders: Referrals Orthopedics Referral M25.562 - Pain in left knee Audiology Referral H91.90 - Unspecified hearing loss, unspecified ear Neuropsychiatry Referral R41.840 - Attention and concentration deficit Medications: Refilled bupropion HCl 75 mg PO DAILY 30 days 30 tabs 3RF
== END 2024-08-08 17:05 | disposition home or self-care (01) ==
LOC: HO.HMCFM 08:39
PROVIDERS: PCP Family Medicine; Visit Provider Family Medicine
DX: M25.562 Pain in left knee (principal); R41.840 Attention and concentration deficit; H91.93 Unspecified hearing loss, bilateral

== ENCOUNTER 2024-08-23 14:15 | Outpatient (AMB) | payer OTHER, SELFPAY ==
--- NOTE | 2024-08-23 14:36 | A.OFFPC_ITS ---
Vital Signs 08/23/24 14:41 Height 6 ft 2 in Weight 207 lb 4 oz BMI 26.6 BP 110/68 Blood Pressure Location Rt brachial Position Sitting Respiration 14 Pulse 64 Pulse Source Pulse Oximeter Temp 97.8 F Temp Source Oral Pulse Oximetry (%) 98 Oxygen Delivery Method Room Air Intake Visit Reasons: follow up back spasms. Intake Note: follow up for back spasms Allergies Sulfa (Sulfonamide Antibiotics) [SULFA (SULFONAMIDE ANTIBIOTICS)] Allergy (Unknown, Verified 08/23/24 14:40) UNKNOWN Tobacco use date assessed: 12/14/23 Dental Screening Dental Screen Date: 10/12/23 HPI follow up back spasms. HPI Details 38 y/o male presents to f/u back pain/sp asms. 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 He had used ibuprofen, heat for relief. Has been slowly improving. Denies any falls on his back. HPI Comments History of Present Illness Details Documentation assistance for Ruiz Archibald MD, was provided by Skip Salvador, Shook Splicer on 08/23/2024 at 2:56 PM EST. I, Dr. Archibald, have read, observed, and verified documentation. [facility] Medical History (Updated 08/23/24 @ 14:55 by Skip Salvador) History of stent insertion of renal artery No active medical problems Surgical History S/P laparoscopic appendectomy History of kidney surgery Family History (Updated 10/12/23 @ 10:02 by Tonie Sheikh CMA) Mother Clotting disorder Maternal Grandfather Cardiovascular disease Social History (Updated 10/12/23 @ 09:57 by Tonie Sheikh CMA) Household Members: Spouse and Children Household Members Other:: 3 kids Both parents involved: No Caregiver staying overnight: No Housing: House Are you a primary manager primary care to a significant other at home: No Do you presently have visiting nurse or other home services: No 75 years or older and lives alone: No Alcohol intake: current Alcohol intake frequency: a few times a month Alcohol type: beer and hard liquor Comment: Whisky Patient Tobacco Use Status: Former Tobacco user Tobacco use type: Cigar and Pipe Years Smoked: >1 YEAR e-Cigarette/Vaping Use: Former Use Substance Use Type: Marijuana service: No Current occupational status: employed 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 1. Little interest or pleasure in doing things: not at all 2. Feeling down, depressed, or hopeless: not at all 3. Trouble falling or staying asleep, or sleeping too much: several days 4. Feeling tired or having little energy: several days 5. Poor appetite or overeating: not at all 6. Feeling bad about yourself - or that you are a failure or have let yourself or your family down: not at all 7. Trouble concentrating on things, such as reading the newspaper or watching television: not at all 8. Moving or speaking so slowly that other people could have noticed. Or the opposite - being so fidgety or restless that you have been moving around a lot more than usual: not at all 9. Thoughts that you would be better off or of hurting yourself in some way: not at all Total score: 2 Source: Developed by Drs. Parth Perez, Beatriz Ignacio, Suresh Martines and colleagues, with an educational kenneth from [employer]. Thrive Questionnaire Date Thrive assessed: 10/12/23 I am a: Patient What is your living situation today?: I have a steady place to live Within the past 12 months, did the food you bought not last and you didn't have the money to get more?: Never true Within the past 12 months, did you worry whether your food would run out before you got money to buy more?: Never true Do you have trouble paying for medicines?: No Do you have trouble getting transportation to medical appointments?: No Do you have trouble paying your heating and electricity bill?: No Do you have trouble taking care of your child, family member or friend?: No Do you have trouble with day-to-day activities such as bathing, preparing meals, shopping, managing finances, etc.?: No Are you currently unemployed and looking for a job?: No Are you interested in more education?: Yes Please select the resources that you would like help with: None Currently or been in a relationship where the following occur: No concerns reported THRIVE Score: 0 AUDIT C Alcohol Use Questionnaire (AUDIT-C) 1. How often do you have a drink containing alcohol?: 2-3 times a week Total Score: 3 PATTI-7 AMB Questionnaire PATTI-7 Date PATTI - 7 assessed: 10/12/23 Feeling nervous, anxious, or on edge: 1 = Several days Not being able to stop or control worryin = Not at all Worrying too much about different things: 0 = Not at all Trouble relaxin = More than half the days Being so restless that it is hard to sit still: 2 = More than half the days Becoming easily annoyed or irritable: 0 = Not at all Feeling afraid as if something awful might happen: 2 = More than half the days Total PATTI-7 score (0-4 normal; 5-9 mild; 10-14 moderate; 15-21 severe): 7 Source: Developed by Drs. Parth Perez, Beatriz Ignacio, Suresh Martines and colleagues, with an educational kenneth from [employer]. Review of Systems Const Denies chills, Denies fatigue, Denies fever(s), Denies headache(s) and Denies weakness ENT Denies dizziness and Denies headache(s) Card Denies dyspnea Resp Denies cough, Denies dyspnea, Denies wheezing and Denies other (shortness of breath) Musc Reports back pain, Denies numbness and Denies tingling Neuro Denies dizziness, Denies headache(s), Denies numbness, Denies tingling and Denies weakness Psych Denies anxiety and Denies depression Endo Denies fatigue Aller/Immun Denies wheezing Physical exam (Primary Care) Vital Signs: Last Vital Signs Temp 97.8 F 08/23/24 14:41 Pulse 64 08/23/24 14:41 Resp 14 08/23/24 14:41 BP 110/68 08/23/24 14:41 Pulse Ox 98 08/23/24 14:41 Oxygen Delivery Method Room Air 08/23/24 14:41 BMI result Body Mass Index 26.6 Tobacco/Smoking Status: Tobacco use Status Tobacco use date assessed 12/14/23 08/23/24 14:38 Patient Tobacco Use Status Former Tobacco user 08/23/24 14:38 Tobacco use type Pipe,Cigar 08/23/24 14:38 e-Cigarette/Vaping Use Former Use 08/23/24 14:38 PHQ-9: PHQ-9 Score PHQ-9: Total score 2 08/23/24 15:01 Thrive Assessment: Date of Thrive Assessment Date Thrive assessed 10/12/23 08/23/24 14:38 Currently or been in a relationship where the following occur: No concerns reported Const General: well developed; No acute distress Nutritional Appearance: well nourished Orientation/consciousness: patient oriented x3 HENMT Head: Yes normocephalic and Yes atraumatic Eyes General: appearance normal, both eyes and all related structures Pupils: Equal, round and reactive pupils present EOM: EOMs intact bilaterally Resp Effort & Inspection: normal respiratory effort Neuro General: patient oriented x3 and gait normal Cranial nerves: Yes Equal, round and reactive pupils present Psych Affect: normal affect Coding Level of Care Code Est Pt Level 3 (39129) Diagnoses Back pain M54.9 Assessment & Plan Assessment & Plan (1) Back pain: Code(s): M54.9 - Dorsalgia, unspecified Category: Medical Plan: Muscle?spasm?right?paraspinous?muscles?of?mid?back Start?naproxen?b.i.d. Muscle?relaxer?b.i.d. Ice/heat Encouraged?relative?rest He?will?let?me?know?if?not? improving.??Would?check?imaging?and?or?start?physical?therapy. Will?likely?resolve?over next 1-2 weeks Medications: New naproxen 500 mg PO BID PRN 28 tabs 0RF pain 14 days cyclobenzaprine 10 mg PO BID PRN 14 tabs 0RF muscle spasm 7 days
[2024-08-23 14:41] VITALS: BP 110/68; PULSE 64; RESP 14; TEMP 36.6; O2SAT 98; BMI 26.6
--- OUTSIDE RECORDS SUMMARY | 2024-08-23 17:51 | XMS_ITS | Encounter Summary ---
Author Organization [facility] Address [address] [place] [address] Care Team Providers Care Die Inspector Name Role Phone Chelsey Dill MD Primary Care Provider Unavail able Encounter Details Date Type Department Care Team Description 05/17/2021 Senior Gl Accountant Report Medical Records [address] [place] [address] Sonny García MD Social History Tobacco Use Types Packs/Day Years Used Date Smoking Tobacco: Light Smoker Smokeless Tobacco: Never Comments:started age 23; smo kes pipe couple times per month Alcohol Use Standard Drinks/Week Comments Yes 1 (1 standard drink = 0.6 oz pur e alcohol) Education Answer Date Recorded What is the highest level of school you have completed or the highest degree you have received? Bachelor's degree (e.g., BA, AB, BS) 11/09/2020 Sex Assigned at Date Recorded Not on file documented as of this encounter Plan of Treatment Not on file documented as of this encounter Visit Diagnoses Not on filedocumented in this encounter Care Teams Die Inspector Relationship Specialty Start Date End Date Chelsey Dill MD PCP - General Internal Medicine 12/28/20 documented as of this encounter
--- OUTSIDE RECORDS SUMMARY | 2024-08-23 17:51 | XMS_ITS | Encounter Summary ---
Author Organization [facility] Address [address] [place] [address] Care Team Providers Care Surveillance Supervisor Name Role Phone Pollo Toscano MD Primary Care Provider [phone] Chelsey Dill MD Primary Care Provider Unavail able Encounter Details Date Type Department Care Team Description 09/16/2017 Release of Information Medical Records [address] [place] [id number] Abstract, Provider Social History Tobacco Use Types Packs/Day Years Used Date Smoking Tobacco: Light Smoker Smokeless Tobacco: Never Comments:couple times per mo nth Alcohol Use Standard Drinks/Week Comments Yes 1 (1 standard drink = 0.6 oz pur e alcohol) Sex Assigned at Date Recorded Not on file documented as of this encounter Plan of Treatment Not on file documented as of this encounter Visit Diagnoses Not on filedocumented in this encounter Care Teams Surveillance Supervisor Relationship Specialty Start Date End Date Pollo Toscano MD [address] [place] [address] [id number] PCP - General Internal Medicine 08/18/17 12/27/20 Chelsey Dill MD [address] [place] [id number] PCP - General Internal Medicine 12/28/20 documented as of this encounter
--- OUTSIDE RECORDS SUMMARY | 2024-08-23 17:51 | XMS_ITS | Encounter Summary ---
Author Organization [facility] Address [address] [place] [address] Care Team Providers Care Tank Pumper Name Role Phone Pollo Toscano MD Primary Care Provider [phone] Chelsey Dill MD Primary Care Provider Unavail able Encounter Details Date Type Department Care Team Description 11/16/2020 SDAR FORMS Medical Records [address] [place] [id number] Abstract, Provider Social History Tobacco Use Types [...] Assigned at Date Recorded Not on file COVID-19 Exposure Response Date Recorded In the last month, have you been in contact with someone who was confirmed or suspected to have Coronavirus / COVID-19? No / Unsure 11/09/2020 1:10 PM EDT documented as of this encounter Plan of Treatment Not on file documented as of this encounter Visit Diagnoses Not on filedocumented in this encounter Care Teams Tank Pumper Relationship Specialty Start Date End Date Pollo Toscano MD [address] [place] [id number] PCP - General Internal Medicine 08/18/17 12/27/20 Chelsey Dill MD [address] [place] [id number] PCP - General Internal Medicine 12/28/20 documented as of this encounter
--- OUTSIDE RECORDS SUMMARY | 2024-08-23 17:51 | XMS_ITS | Encounter Summary ---
Author Organization [facility] Address [address] [facility] [place] [address] Care Team Providers Care Equipment Washer Name Role Phone Pollo Toscano MD Primary Care Provider [phone] Chelsey Dill MD Primary Care Provider Unavail able Encounter Details Date Type Department Care Team Description 10/03/2020 Hospital Medical Records [address] [place] [id number] [facility] Social History Tobacco Use Types Packs/Day Years [...] on filedocumented in this encounter Care Teams Equipment Washer Relationship Specialty Start Date End Date Pollo Toscano MD [address] [place] [address] [phone] PCP - General Internal Medicine 08/18/17 12/27/20 Chelsey Dill MD [address] [place] [id number] PCP - General Internal Medicine 12/28/20 documented as of this encounter
--- OUTSIDE RECORDS SUMMARY | 2024-08-23 17:51 | XMS_ITS | Encounter Summary ---
Author Organization [facility] Address [address] [place] [address] Care Team Providers Care National Sales Consultant Name Role Phone Chelsey Dill MD Primary Care Provider Unavail able Encounter Details Date Type Department Care Team Description 11/29/2021 Industrial Relations Manager Report Medical Records [address] [place] [address] Sonny García MD Social History Tobacco Use [...] on filedocumented in this encounter Care Teams National Sales Consultant Relationship Specialty Start Date End Date Chelsey Dill MD PCP - General Internal Medicine 12/28/20 documented as of this encounter
--- OUTSIDE RECORDS SUMMARY | 2024-08-23 17:51 | XMS_ITS | Encounter Summary ---
Author Organization [facility] Address [address] [place] [address] Care Team Providers Care Improvement Nurse Name Role Phone Pollo Toscano MD Primary Care Provider [phone] Chelsey Dill MD Primary Care Provider Unavail able Encounter Details Date Type Department Care Team Description 01/31/2018 Release of Information Medical Records [address] [place] [id number] Abstract, Provider Social History Tobacco Use Types [...] on filedocumented in this encounter Care Teams Improvement Nurse Relationship Specialty Start Date End Date Pollo Toscano MD [address] [place] [address] [phone] PCP - General Internal Medicine 08/18/17 12/27/20 Chelsey Dill MD [address] [place] [phone] PCP - General Internal Medicine 12/28/20 documented as of this encounter
== END 2024-08-23 15:01 | disposition home or self-care (01) ==
PROVIDERS: PCP Family Medicine; Visit Provider Family Medicine
DX: M54.9 Dorsalgia, unspecified (principal)

== ENCOUNTER → 2024-08-23 14:15 | Outpatient (BNVA) | payer OTHER, SELFPAY | PROVIDERS: PCP Family Medicine; Visit Provider Family Medicine | DX: M54.9 Dorsalgia, unspecified (principal) | CPT/HCPCS: 99212 ==

== ENCOUNTER 2024-08-31 08:39 | Outpatient (REF) | payer OTHER, SELFPAY ==
--- OUTSIDE RECORDS SUMMARY | 2024-08-31 09:19 | XMS_ITS | Encounter Summary ---
Author Organization [facility] Address [address] [place] [address] Care Team Providers Care Nurse Informatics Educator Name Role Phone Pollo Toscano MD Primary Care Provider [phone] Chelsey Dill MD Primary Care Provider Unavail able Encounter Details Date Type Department Care Team Description 11/16/2020 [facility] FORMS Medical Records [address] [place] [address] Abstract, Provider Social History Tobacco Use Types [...] on filedocumented in this encounter Care Teams Nurse Informatics Educator Relationship Specialty Start Date End Date Pollo Toscano MD [address] [place] [phone] PCP - General Internal Medicine 08/18/17 12/27/20 Chelsey Dill MD [address] [place] [id number] PCP - General Internal Medicine 12/28/20 documented as of this encounter
--- OUTSIDE RECORDS SUMMARY | 2024-08-31 09:19 | XMS_ITS | Encounter Summary ---
Author Organization [facility] Address [address] [facility] [place] [address] Care Team Providers Care Animal Behaviourist Name Role Phone Pollo Toscano MD Primary Care Provider [phone] Chelsey Dill MD Primary Care Provider Unavail able Encounter Details Date Type Department Care Team Description 10/03/2020 Hospital Medical Records [address] [place] [address] [facility] Social History Tobacco Use Types Packs/Day Years [...] on filedocumented in this encounter Care Teams Animal Behaviourist Relationship Specialty Start Date End Date Pollo Toscano MD [address] [place] [address] [phone] PCP - General Internal Medicine 08/18/17 12/27/20 Chelsey Dill MD [address] [place] [id number] PCP - General Internal Medicine 12/28/20 documented as of this encounter
--- OUTSIDE RECORDS SUMMARY | 2024-08-31 09:19 | XMS_ITS | Encounter Summary ---
Author Organization [facility] Address [address] [place] [address] Care Team Providers Care New Product Trainer Name Role Phone Chelsey Dill MD Primary Care Provider Unavail able Encounter Details Date Type Department Care Team Description 04/09/2023 DOT Physical Forms Medical Records [address] [place] [address] Abstract, Provider Social History Tobacco Use Types [...] Exposure Response Date Recorded In the last 10 days, have yo u been in contact with someone who was confirmed or suspected to have Coronavirus/COVID-19? No / Unsure 04/09/2023 8:50 AM EDT documented as of this encounter Plan of Treatment Not on file documented as of this encounter Visit Diagnoses Not on filedocumented in this encounter Care Teams New Product Trainer Relationship Specialty Start Date End Date Chelsey Dill MD PCP - General Internal Medicine 12/28/20 documented as of this encounter
--- OUTSIDE RECORDS SUMMARY | 2024-08-31 09:19 | XMS_ITS | Encounter Summary ---
Author Organization [facility] Address [address] [place] [address] Care Team Providers Care Healthcare Associate Name Role Phone Chelsey Dill MD Primary Care Provider Unavail able Encounter Details Date Type Department Care Team Description 11/29/2021 Water Reuse Program Manager Report Medical Records [address] [place] [address] Sonny García MD Social History Tobacco Use [...] on filedocumented in this encounter Care Teams Healthcare Associate Relationship Specialty Start Date End Date Chelsey Dill MD PCP - General Internal Medicine 12/28/20 documented as of this encounter
--- OUTSIDE RECORDS SUMMARY | 2024-08-31 09:19 | XMS_ITS | Encounter Summary ---
Author Organization [facility] Address [address] [place] [address] Care Team Providers Care Lawn And Tree Service Spray Supervisor Name Role Phone Chelsey Dill MD Primary Care Provider Unavail able Encounter Details Date Type Department Care Team Description 01/10/2021 Release of Information Medical Records [address] [place] [address] [facility] Social History Tobacco Use Types Packs/Day [...] on filedocumented in this encounter Care Teams Lawn And Tree Service Spray Supervisor Relationship Specialty Start Date End Date Chelsey Dill MD PCP - General Internal Medicine 12/28/20 documented as of this encounter
--- OUTSIDE RECORDS SUMMARY | 2024-08-31 09:19 | XMS_ITS | Clinical Summary ---
Author Organization [facility] Address [address] [place] [address] Care Team Providers Care Hourly Manager Name Role Phone Chelsey Dill MD Primary Care Provider Unavail able Allergies Active Allergy Reactions Severity Noted Date Comments Sulfa Drugs 01/23/2018 Medications No known medications Active Problems Problem Noted Date Overweight (BMI 25.0-29.9) 11/09/2020 H/O ureter repair 09/11/2017 Overview: Right Immunizations Name Administration Dates Next Due Tdap (Adacel) 01/05/2015 Family History Medical History Relation Name Comments No Known Problems Brother x 1 No Known Problems Father sudden cardiac Maternal Grandfather No Known Problems Maternal Grandmother factor v leiden deficiency Mother D VT to PE on anticoagulation Cancer of the Lung Paternal Grandfather + smoker Cancer of the Lung Paternal Grandmother + smoker sudden cardiac Uncle Relation Name Status Comments Brother x 1 Alive Father Alive Maternal Grandfather Maternal Grandmother Alive Mother Alive Paternal Grandfather Paternal Grandmother Uncle Social History Tobacco Use Types Packs/Day Years Used Date Smoking Tobacco: Light Smoker Smokeless Tobacco: Never Tobacco Cessation:Ready to Q uit: No; Counseling Given: No Comments:started age 23; smokes pipe couple times per month Alcohol Use Standard Drinks/Week Comments Yes 1 (1 standard drink = 0.6 oz pur e alcohol) Education Answer Date Recorded What is the highest level of school you have completed or the highest degree you have received? Bachelor's degree (e.g., BA, AB, BS) 11/09/2020 Sex Assigned at Date Recorded Not on file Last Filed Vital Signs Vital Sign Reading Time Taken Comments Blood Pressure 139/67 04/09/2023 8:57 AM EDT Pulse 78 04/09/2023 8:57 AM EDT Temperature 36 ??C (96.8 ??F) 04/09/2023 8:57 AM EDT Respiratory Rate 16 08/03/2020 3:45 PM EST Oxygen Saturation 98% 04/09/2023 8:57 AM EDT Inhaled Oxygen Concentration - - Weight 88.5 kg (195 lb) 04/09/2023 8:57 AM EDT Height 188 cm (6' 2 ) 04/09/2023 8:57 AM EDT Body Mass Index 25.04 04/09/2023 8:57 AM EDT Plan of Treatment Health Maintenance Due Date Last Done Comments Covid-19 Vaccine (#1) 05/12/1988 TOBACCO CHECK/ADVISE 11/09/2005 INFLUENZA (#1) 2024 09/11/2017 (Refused) BMI CHECK/ADVISE 06/29/2024 11/09/2020, 09/11/2017 DEPRESSION SCREENING/FOLLOWUP 06/29/2024 SOCIAL NEEDS SCREENING 06/29/2024 DTAP/TDAP/TD (2 - Td or Tdap) 01/05/2025, 01/05/2015 (External Completion) CHOLESTEROL SCREENING 11/06/2025 11/06/2020, 018 BASELINE HEALTH EXAM 18-39 11/09/202511/09, 11/06/2020, 11/05/2020, Additional history exists PNEUMOCOCCAL VACCINE FOR HIG H RISK PATIENTS (#1) 11/09/2052 Care Teams Hourly Manager Relationship Specialty Start Date End Date Chelsey Dill MD PCP - General Internal Medicine 12/28/20
--- OUTSIDE RECORDS SUMMARY | 2024-08-31 09:19 | XMS_ITS | Encounter Summary ---
Author Organization [facility] Address [address] [place] [address] Care Team Providers Care Video Network Engineer Name Role Phone Chelsey Dill MD Primary Care Provider Unavail able Encounter Details Date Type Department Care Team Description 02/07/2021 Hospital Medical Records [address] [place] [address] Ramez Bolaños MD Social History Tobacco Use Types Packs/Day [...] on filedocumented in this encounter Care Teams Video Network Engineer Relationship Specialty Start Date End Date Chelsey Dill MD PCP - General Internal Medicine 12/28/20 documented as of this encounter
== END 2024-08-31 08:40 | disposition home or self-care (01) ==
LOC: HO.SH 08:39
PROVIDERS: Visit Provider Family Medicine
DX: Z01.118 Encounter for examination of ears and hearing with other abnormal findings (principal); H93.293 Other abnormal auditory perceptions, bilateral
CPT/HCPCS: 92557; 92567

== ENCOUNTER 2024-09-20 08:18 | Outpatient (REF) | payer OTHER, SELFPAY ==
--- NOTE | ~2024-09-20 | XR_ITS ---
EXAMINATION: XR KNEE AP STANDING CLINICAL INFORMATION: M25.569 - Pain in unspecified knee COMPARISON: Left knee x-ray dated June 30, 2024. TECHNIQUE: AP bilateral standing view of the knees was obtained. FINDINGS: No acute cortical disruption or malalignment. Mild joint space narrowing involving the medial compartment. Mild sclerosis and the articular surface of the medial tibial plateau, bilaterally. No lytic or effusions. XR/XR knee standing BI IMPRESSION: Mild medial compartment osteoarthrosis. Electronically signed by: Maximilian Combs MD 09/21/2024 10:49 AM EDT
== END 2024-09-20 08:19 | disposition home or self-care (01) ==
LOC: HO.HOSX 08:18
PROVIDERS: Visit Provider Physician Assistant
DX: M22.42 Chondromalacia patellae, left knee (principal); M25.562 Pain in left knee
CPT/HCPCS: 73565; 99202

== ENCOUNTER 2024-09-20 10:27 | Outpatient (AMB) | payer OTHER, SELFPAY ==
--- NOTE | 2024-09-20 10:32 | MHC.OFFVIS ---
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 No hx of injury. He reports that he has had ongoing knee pain for 2 years. He has utilized heat and ice applications as well as OTC NSAIDs with relief. Patient has been wearing a compressed knee brace for 2 months which give hims relief, when he doesn't have the knee brace one he tends to have sharp pain behind his knee cap and on the medial aspect of the knee. Patient tends to have a pulling sensation on the medial aspect of the knee. Going down the stairs gives him a sharp pain behind his knee. 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 Jett delgado is a 38-year-old male who presents to the office today for evaluation of left knee pain. He denies any injury or trauma to the area. He reports his pain is worse with bending squatting and stair climbing. He reports the pain has been present for the past 2 years and he has tried heat ice as well as NSAIDs with mild relief. He is wearing a compression knee brace that also provides him with some relief in additional support. Pain is located over the anterior aspect of the knee. [facility] Medical History (Updated 09/20/24 @ 11:01 by Radha Dahl PA-C) History of stent insertion of renal artery No active medical problems Surgical History S/P laparoscopic appendectomy History of kidney surgery Family History (Updated 10/12/23 @ 10:02 by Tonie Sheikh CMA) Mother Clotting disorder Maternal Grandfather Cardiovascular disease Social History Household Members: Spouse and Children Household Members Other:: 3 kids Both parents involved: No Caregiver staying overnight: No Housing: House Are you a primary resident care aide to a significant other at home: No Do you presently have visiting nurse or other home services: No 75 years or older and lives alone: No Alcohol intake: current Alcohol intake frequency: a few times a month Alcohol type: beer and hard liquor Comment: Whisky Patient Tobacco Use Status: Former Tobacco user Tobacco use type: Cigar and Pipe Years Smoked: >1 YEAR e-Cigarette/Vaping Use: Former Use Substance Use Type: Marijuana service: No Current occupational status: employed 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 Current occupational exposures/hazards: Yes Sexual orientation: Straight/Heterosexual Gender identity: Male Cognitive needs: Yes (Hard to focus) Hearing needs: Yes (Possibly job related) Vision needs: Yes (possibly job related) Review of Systems Const All systems reviewed & are unremarkable except as noted in HPI and below Physical Exam Vital Signs: BMI result Body Mass Index 26.6 Const General: cooperative, healthy appearing and no acute distress Resp Effort & Inspection: normal respiratory effort and able to speak in complete sentences Cardio Rate: regular rate Peripheral pulses: Peripheral pulses 2+ throughout Skin Lesions: no lesions Rashes: no rashes Extrem Other: Left knee: Normal to inspection. No ecchymosis, erythema, or joint effusion. No tenderness to palpation along the medial or lateral joint lines. Full knee extension and flexion. No pain with patellar grind. No patellar laxity. No varus or valgus laxity. Negative anterior drawer. Negative Cecilia's. NVI. Assessment & Plan Assessment & Plan (1) Chondromalacia patellae, left knee: Code(s): M22.42 - Chondromalacia patellae, left knee Category: Medical Plan Mr. Frausto this is a 38-year-old male who presents to the office today for evaluation of left knee pain. He denies any injury or trauma to the area. He reports his pain is worse with bending squatting and stair climbing. He reports the pain has been present for the past 2 years and he has tried heat ice as well as NSAIDs with mild relief. He is wearing a compression knee brace that also provides him with some relief in additional support. Pain is located over the anterior aspect of the knee. While in the office today, we discussed the importance of physical therapy to work on quad strengthening. May continue to use the knee sleeve as needed. Physical therapy has been ordered while in the office today. He will follow up PRN, sooner if needed. X-rays of the left knee which were obtained on 06/30/2024 as well as additional views obtained in the office today while in the office today and were reviewed by me, Radha Dahl PA-C, revealed no acute fracture dislocation. Orders: Orders PT Evaluation and Treatment Today M22.42 - Chondromalacia patellae, left knee XR knee standing BI Today M25.569 - Pain in unspecified knee Coding Level of Care Code New Pt Level 3 (94140) Diagnoses Chondromalacia patellae, left knee M22.42
[2024-09-20 10:39] VITALS: BMI 26.6
== END 2024-09-20 12:02 | disposition home or self-care (01) ==
LOC: HO.HOS 10:28
PROVIDERS: PCP Family Medicine; Visit Provider Physician Assistant
DX: M22.42 Chondromalacia patellae, left knee (principal)
CPT/HCPCS: 99203

== ENCOUNTER → 2024-09-20 10:32 | Outpatient (BNV) | payer OTHER, SELFPAY | PROVIDERS: Visit Provider Radiology Diagnostic Radiology | DX: M25.561 Pain in right knee (principal); M25.562 Pain in left knee | CPT/HCPCS: 73565 ==

== ENCOUNTER 2024-11-02 09:58 | Outpatient (AMB) | payer OTHER, SELFPAY ==
--- NOTE | 2024-11-02 10:14 | MHC.OFFWIV ---
Intake Vital Signs 11/02/24 10:16 Weight 207 lb BP 116/80 Blood Pressure Location Lt brachial Position Sitting Pulse 58 Pulse Source Pulse Oximeter Pulse Oximetry (%) 98 Oxygen Delivery Method Room Air Intake Visit Reasons: EP- lower back injury- hurt house work Intake Note: Patient here for lower back pain after injuring himself on thursday. 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 and felt sharp pain in lower back Center back Continued to work but pain became too worse Occured on Thursday States pain still painful Is able to stand and walk but can't use lower back muscles He denies pain this severe in the past No falls Pt has tried tylenol/motrin, ice/heat and used stratching prn No abdominal pain, CP or SOB No urine or bowel incontinence or urine symptoms No pain radition Pain level was severe but better now [facility] Medical History (Updated 11/02/24 @ 12:10 by Carmen Nolan PA-C) History of stent insertion of renal artery No active medical problems Surgical History S/P laparoscopic appendectomy History of kidney surgery Family History (Updated 10/12/23 @ 10:02 by Tonie Sheikh CMA) Mother Clotting disorder Maternal Grandfather Cardiovascular disease Social History Household Members: Spouse and Children Household Members Other:: 3 kids Both parents involved: No Caregiver staying overnight: No Housing: House Are you a primary inspector health care facilities to a significant other at home: No Do you presently have visiting nurse or other home services: No 75 years or older and lives alone: No Alcohol intake: current Alcohol intake frequency: a few times a month Alcohol type: beer and hard liquor Comment: Whisky Patient Tobacco Use Status: Former Tobacco user Tobacco use type: Cigar and Pipe Years Smoked: >1 YEAR e-Cigarette/Vaping Use: Former Use Substance Use Type: Marijuana service: No Current occupational status: employed 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 Current occupational exposures/hazards: Yes Sexual orientation: Straight/Heterosexual Gender identity: Male Cognitive needs: Yes (Hard to focus) Hearing needs: Yes (Possibly job related) Vision needs: Yes (possibly job related) Review of Systems Const Denies chills, Denies fatigue and Denies fever(s) Card Denies chest pain and Denies dyspnea Resp Denies cough and Denies dyspnea GI Denies abdominal pain Denies difficulty urinating Musc Reports back pain, Denies numbness, Denies radiating pain into limb, Reports stiffness and Denies tingling Skin/Breast Denies rash Neuro Denies numbness and Denies tingling Endo Denies fatigue Physical Exam Vital Signs: Last Vital Signs Pulse 58 11/02/24 10:16 BP 116/80 11/02/24 10:16 Pulse Ox 98 11/02/24 10:16 Oxygen Delivery Method Room Air 11/02/24 10:16 General: Non-toxic, NAD. Speaking full sentences. Skin: Warm dry throughout. No posterior back or flank ecchymosis, rashes or lesions. Eye: EOMI Respiratory: CTA bilaterally. No wheezes, rales or rhonchi Cardiac: RRR. No murmur Abdomen: BS present. No CVAT MSK: No midline spinal ttp. + bilateral lumbar paravertebral muscle ttp. Negative SLR bilaterlly. 5/5 strength dorsal/plantar flexion Neurology: Alert. No aphasia or facial droop. Gait without abnormality Psych: Good mood and affect Assessment & Plan Assessment & Plan (1) Lumbar back pain: Code(s): M54.50 - Low back pain, unspecified Plan: Patient seen and evaluated. No falls or direct trauma/injury for concern for compression fx No neurological/radicular symptoms No imaging warranted at this time WIll trial robaxin (lethargy, no alcohol or driving) Warm compress, gentle ROM ER s/s discussed Patient gave verbal understanding and had no additional questions or concerns at time of discharge All questions answered Medications: New methocarbamol 750 mg PO TID 14 tabs 0RF Coding Level of Care Code Est Pt Level 3 (26953) Diagnoses Lumbar back pain M54.50
[2024-11-02 10:16] VITALS: BP 116/80; PULSE 58; O2SAT 98
== END 2024-11-02 10:40 | disposition home or self-care (01) ==
PROVIDERS: PCP Family Medicine; Visit Provider Physician Assistant
DX: M54.50 Low back pain, unspecified (principal)

== ENCOUNTER → 2024-11-02 09:58 | Outpatient (BNVA) | payer OTHER, SELFPAY | PROVIDERS: PCP Family Medicine; Visit Provider Physician Assistant | DX: M54.50 Low back pain, unspecified (principal) | CPT/HCPCS: 99212 ==

== ENCOUNTER 2024-11-15 08:24 | Outpatient (AMB) | payer OTHER, SELFPAY ==
--- OUTSIDE RECORDS SUMMARY | 2024-11-15 08:30 | XMS_ITS | Encounter Summary ---
Author Organization [facility] Address [address] [place] [address] Care Team Providers Care Hospitalist Program Director Name Role Phone Chelsey Dill MD Primary Care Provider Unavail able Encounter Details Date Type Department Care Team Description 05/17/2021 Sole Tacker Report Medical Records [address] [place] [address] Sonny García MD Social History Tobacco Use [...] on filedocumented in this encounter Care Teams Hospitalist Program Director Relationship Specialty Start Date End Date Chelsey Dill MD PCP - General Internal Medicine 12/28/20 documented as of this encounter
--- OUTSIDE RECORDS SUMMARY | 2024-11-15 08:30 | XMS_ITS | Encounter Summary ---
Author Organization [facility] Address [address] [place] [address] Care Team Providers Care Car Body Mechanic Name Role Phone Pollo Toscano MD Primary Care Provider [phone] Chelsey Dill MD Primary Care Provider Unavail able Encounter Details Date Type Department Care Team Description 09/16/2017 Release of Information Medical Records [address] [place] [address] Abstract, Provider Social History Tobacco Use Types [...] on filedocumented in this encounter Care Teams Car Body Mechanic Relationship Specialty Start Date End Date Pollo Toscano MD [address] [place] [address] [phone] PCP - General Internal Medicine 08/18/17 12/27/20 Chelsey Dill MD [address] [place] [id number] PCP - General Internal Medicine 12/28/20 documented as of this encounter
--- OUTSIDE RECORDS SUMMARY | 2024-11-15 08:30 | XMS_ITS | Encounter Summary ---
Author Organization [facility] Address [address] [place] [address] Care Team Providers Care Clinical Nurse Reviewer Name Role Phone Chelsey Dill MD Primary Care Provider Unavail able Encounter Details Date Type Department Care Team Description 11/29/2021 Mobile Ui Designer Report Medical Records [address] [place] [address] Sonny García MD Social History Tobacco Use [...] on filedocumented in this encounter Care Teams Clinical Nurse Reviewer Relationship Specialty Start Date End Date Chelsey Dill MD PCP - General Internal Medicine 12/28/20 documented as of this encounter
--- OUTSIDE RECORDS SUMMARY | 2024-11-15 08:30 | XMS_ITS | Encounter Summary ---
Author Organization [facility] Address [address] [place] [address] Care Team Providers Care Coldfusion Name Role Phone Chelsey Dill MD Primary Care Provider Unavail able Encounter Details Date Type Department Care Team Description 04/09/2023 DOT Physical Forms Medical Records [address] [place] [address] Abstract, Provider Social History Tobacco Use Types [...] on filedocumented in this encounter Care Teams Coldfusion Relationship Specialty Start Date End Date Chelsey Dill MD PCP - General Internal Medicine 12/28/20 documented as of this encounter
--- OUTSIDE RECORDS SUMMARY | 2024-11-15 08:30 | XMS_ITS | Clinical Summary ---
Author Organization [facility] Address [address] [place] [address] Care Team Providers Care Annual Giving Manager Name Role Phone Chelsey Dill MD [...] Covid-19 Vaccine (#1) 05/12/1988 TOBACCO CHECK/ADVISE 11/09/2005 BMI CHECK/ADVISE 06/29/2024 11/09/2020, 09/11/2017 DEPRESSION SCREENING/FOLLOWUP 06/29/2024 SOCIAL NEEDS SCREENING 06/29/2024 DTAP/TDAP/TD (2 - Td or Tdap) 01/05/2025, 01/05/2015 (External Completion) INFLUENZA (Season Ended) 2025 09/11/2017 (Refu sed) CHOLESTEROL SCREENING 11/06/2025 11/06/2020, 018 BASELINE HEALTH EXAM 18-39 11/09/202511/09, 11/06/2020, 11/05/2020, Additional history exists PNEUMOCOCCAL VACCINE FOR HIG H RISK PATIENTS (#1) 11/09/2052 Care Teams Annual Giving Manager Relationship Specialty Start Date End Date Chelsey Dill MD PCP - General Internal Medicine 12/28/20
--- OUTSIDE RECORDS SUMMARY | 2024-11-15 08:30 | XMS_ITS | Encounter Summary ---
Author Organization [facility] Address [address] [place] [address] Care Team Providers Care Record Press Operator Name Role Phone Pollo Toscano MD Primary Care Provider [phone] Chelsey Dill MD Primary Care Provider Unavail able Encounter Details Date Type Department Care Team Description 11/16/2020 [facility]DAK FORMS Medical Records [address] [place] [phone] Abstract, Provider Social History Tobacco Use Types [...] on filedocumented in this encounter Care Teams Record Press Operator Relationship Specialty Start Date End Date Pollo Toscano MD [address] [place] [phone] PCP - General Internal Medicine 08/18/17 12/27/20 Chelsey Dill MD [address] [place] [id number] PCP - General Internal Medicine 12/28/20 documented as of this encounter
--- NOTE | 2024-11-15 08:33 | AM.OFFWIN_ITS ---
Intake Vital Signs 11/15/24 08:36 Height 6 ft 2 in Weight 207 lb BMI 26.6 BP 126/84 Blood Pressure Location Rt brachial Position Sitting Pulse 62 Pulse Source Pulse Oximeter Pulse Oximetry (%) 98 Oxygen Delivery Method Room Air Intake Visit Reasons: EP Back pain Intake Note: Patient here for back pain that has worsened, pain radiates to the testicles now. Patient Tobacco Use Status: Former Tobacco user Allergies Sulfa (Sulfonamide Antibiotics) [SULFA (SULFONAMIDE ANTIBIOTICS)] Allergy (Unknown, Verified 11/15/24 08:36) UNKNOWN Medication List - Last Reconciled 11/15/24 by Willis Guzman MD bupropion HCl 75 mg PO DAILY 30 days methocarbamol 750 mg PO Q8H Do you need a note to return to daycare/school/sports/work: No HPI EP Back pain HPI Details History - The patient is a 39-year-old male pres enting with lumbar strain with radiating pain. - The patient initially experienced rosa maria p lumbar pain after bending over, which occurred a few weeks ago. - At the time of injury, there was no ra diating pain, and the patient was unable to stand or walk for approximately a day and a half. - The initial treatment was with muscle relaxants, taken one pill three times daily, which the patient found ineffective, leading to self-administration of two pills once daily. - Recently, the patient reports continui ng lumbar pain - The pain does not extend to the groin area and remains centralized in the lower back and upper buttock region. - The patient reports soreness without p ercussion-induced pain and difficulty bending forward, but no pain upon twisting or leg elevation. - The patient denies any groin pain, uri nary, or bowel issues. - The patient has continued doing light work activities without heavy lifting. Problem List - Lumbar Strain Patient Instructions - Take the prescribed pain and anti-infl ammatory medication with food, 12 hours apart, one with breakfast, and another 12 hours later, with food. - Use the prescribed muscle relaxant med ication only at night, as it may cause drowsiness during the day. - Limit activities that may exacerbate t he pain, such as heavy lifting or strenuous bending. - Follow up for an x-ray as directed to get a baseline view of the lumbar region. - Contact the physician or return for a visit if symptoms worsen or do not improve. - Arrange an appointment with primary ca re if no improvement, as suggested. Review of Systems - General: No fever no chills - Neurological: No headaches no dizziness - Ear nose throat: No sore throat no hearing difficulty no ear pain - Cardiovascular: No syncope, no chest pain, no palpitations - Gastrointestinal: No nausea vomiting or diarrhea Physical Exam - General: No acute distress - HEENT: No acute findings - Neck: Supple - Respiratory system: Able to talk in f ull sentences - Gastrointestinal: No pain - back: Pain located lumbar area, no alfonso n with percussion, limited range of motion in flexion, straight leg negative bilateral - Extremities: No new findings - DRIP MOLDER: Alert awake oriented x3 motor se nsory intact - Skin: Normal turgor PFSH Medical History History of stent insertion of renal artery No active medical problems Surgical History S/P laparoscopic appendectomy History of kidney surgery Family History Mother Clotting disorder Maternal Grandfather Cardiovascular disease Social History Household Members: Spouse and Children Household Members Other:: 3 kids Both parents involved: No Caregiver staying overnight: No Housing: House Are you a primary pediatric acute care unit nurse to a significant other at home: No Do you presently have visiting nurse or other home services: No 75 years or older and lives alone: No Alcohol intake: current Alcohol intake frequency: a few times a month Alcohol type: beer and hard liquor Comment: Whisky Patient Tobacco Use Status: Former Tobacco user Tobacco use type: Cigar and Pipe Years Smoked: >1 YEAR e-Cigarette/Vaping Use: Former Use Substance Use Type: Marijuana service: No Current occupational status: employed 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 Current occupational exposures/hazards: Yes Sexual orientation: Straight/Heterosexual Gender identity: Male Cognitive needs: Yes (Hard to focus) Hearing needs: Yes (Possibly job related) Vision needs: Yes (possibly job related) Physical Exam Vital Signs: Last Vital Signs Pulse 62 11/15/24 08:36 BP 126/84 11/15/24 08:36 Pulse Ox 98 11/15/24 08:36 Oxygen Delivery Method Room Air 11/15/24 08:36 BMI result Body Mass Index 26.6 Assessment & Plan Assessment & Plan (1) Lumbar back pain: Code(s): M54.50 - Low back pain, unspecified Plan History - The patient is a 39-year-old male presenting with lumbar strain with radiating pain. - The patient initially experienced sharp lumbar pain after bending over, which occurred a few weeks ago. - At the time of injury, there was no radiating pain, and the patient was unable to stand or walk for approximately a day and a half. - The initial treatment was with muscle relaxants, taken one pill three times daily, which the patient found ineffective, leading to self-administration of two pills once daily. - Recently, the patient reports continuing lumbar pain - The pain does not extend to the groin area and remains centralized in the lower back and upper buttock region. - The patient reports soreness without percussion-induced pain and difficulty bending forward, but no pain upon twisting or leg elevation. - The patient denies any groin pain, urinary, or bowel issues. - The patient has continued doing light work activities without heavy lifting. Problem List - Lumbar Strain Patient Instructions - Take the prescribed pain and anti-inflammatory medication with food, 12 hours apart, one with breakfast, and another 12 hours later, with food. - Use the prescribed muscle relaxant medication only at night, as it may cause drowsiness during the day. - Limit activities that may exacerbate the pain, such as heavy lifting or strenuous bending. - Follow up for an x-ray as directed to get a baseline view of the lumbar region. - Contact the physician or return for a visit if symptoms worsen or do not improve. - Arrange an appointment with primary care if no improvement, as suggested. Orders: Orders XR lumbar spine 2-3V Today M54.50 - Low back pain, unspecified Medications: New baclofen 10 mg PO BEDTIME 30 tabs 0RF diclofenac sodium 75 mg PO BID 20 tabs 0RF pain 10 days Discontinued methocarbamol Discontinued Reason: Doctor's Order 750 mg PO Q8H 20 tabs 0RF Coding Level of Care Code Est Pt Level 3 (55067) Diagnoses Lumbar back pain M54.50
[2024-11-15 08:36] VITALS: BP 126/84; PULSE 62; O2SAT 98; BMI 26.6
== END 2024-11-15 08:52 | disposition home or self-care (01) ==
PROVIDERS: PCP Family Medicine; Visit Provider Internal Medicine
DX: M54.50 Low back pain, unspecified (principal)

== ENCOUNTER 2024-11-15 08:24 | Outpatient (REF) | payer OTHER, SELFPAY ==
--- NOTE | ~2024-11-15 | XR_ITS ---
EXAMINATION: XR LUMBAR SPINE 2-3 VIEWS HISTORY: M54.50 - Low back pain, unspecified COMPARISON: There are no prior studies for comparison. FINDINGS: AP, lateral, and coned down views of the lumbar spine are submitted. Osseous mineralization is normal. Five nonrib-bearing lumbar vertebral bodies are identified, maintaining normal height and alignment without evidence of fracture or spondylolisthesis. The intervertebral disc spaces are preserved. The posterior elements are intact. The visualized paraspinal soft tissues are unremarkable. XR/XR lumbar spine 2-3V IMPRESSION: Unremarkable examination of the lumbar spine. Electronically signed by: Parth Joe MD 11/15/2024 09:17 AM EDT
--- OUTSIDE RECORDS SUMMARY | 2024-11-15 09:19 | XMS_ITS | Encounter Summary ---
Author Organization [facility] Address [address] [place] [address] Care Team Providers Care Heavy Equipment Plumbing Supervisor Name Role Phone Chelsey Dill MD Primary Care Provider Unavail able Encounter Details Date Type Department Care Team Description 05/17/2021 Scutcher Tender Report Medical Records [address] [place] [address] Sonny García MD Social History Tobacco Use [...] on filedocumented in this encounter Care Teams Heavy Equipment Plumbing Supervisor Relationship Specialty Start Date End Date Chelsey Dill MD PCP - General Internal Medicine 12/28/20 documented as of this encounter
--- OUTSIDE RECORDS SUMMARY | 2024-11-15 09:19 | XMS_ITS | Encounter Summary ---
Author Organization [facility] Address [address] [facility] [place] [address] Care Team Providers Care Coat Joiner Lockstitch Name Role Phone Pollo Toscano MD Primary Care Provider [phone] Chelsey Dill MD Primary Care Provider Unavail able Encounter Details Date Type Department Care Team Description 10/03/2020 Hospital Medical Records [address] [place] [id number] [employer] Social History Tobacco Use Types Packs/Day Years [...] on filedocumented in this encounter Care Teams Coat Joiner Lockstitch Relationship Specialty Start Date End Date Pollo Toscano MD [address] [place] [address] [id number] PCP - General Internal Medicine 08/18/17 12/27/20 Chelsey Dill MD [address] [place] [id number] PCP - General Internal Medicine 12/28/20 documented as of this encounter
--- OUTSIDE RECORDS SUMMARY | 2024-11-15 09:19 | XMS_ITS | Encounter Summary ---
Author Organization [facility] Address [address] [facility] [place] [address] Care Team Providers Care Steward/Stewardess Room Name Role Phone Pollo Toscano MD Primary Care Provider [phone] Chelsey Dill MD Primary Care Provider Unavail able Encounter Details Date Type Department Care Team Description 11/16/2020 [facility] Medical Records [address] [place] [id number] Abstract, Provider Social History Tobacco Use Types [...] on filedocumented in this encounter Care Teams Steward/Stewardess Room Relationship Specialty Start Date End Date Pollo Toscano MD [address] [place] [id number] PCP - General Internal Medicine 08/18/17 12/27/20 Chelsey Dill MD [address] [place] [id number] PCP - General Internal Medicine 12/28/20 documented as of this encounter
== END 2024-11-15 08:25 | disposition home or self-care (01) ==
LOC: HO.HMGCX 08:24
PROVIDERS: PCP Family Medicine; Visit Provider Internal Medicine
DX: M54.50 Low back pain, unspecified (principal)
CPT/HCPCS: 72100; 99212

== ENCOUNTER → 2024-11-15 09:04 | Outpatient (BNV) | payer OTHER, SELFPAY | PROVIDERS: PCP Family Medicine; Visit Provider Radiology Diagnostic Radiology | DX: M54.50 Low back pain, unspecified (principal) | CPT/HCPCS: 72100 ==

== ENCOUNTER 2024-12-28 08:00 | Outpatient (RCR) | payer OTHER, SELFPAY ==
--- NOTE | 2024-12-06 08:47 | MHC.PT.EP ---
[facility] [place] Office [place] [facility] [place] [facility] [address] Sarahi Mcmahan [address] [phone] F: [phone] F: [phone] F: [phone] F: [phone] Physical Therapy Plan of Care Date of Evaluation: 12/06/24 Date of Surgery: n/a Diagnosis: lumbar back pain Assessment: Patient is a 39 year old male presenting to PT with complaints of pain in his low back. Pt reports onset of pain began about 4-5 weeks ago due to bending over. He presents today with impairments in pain, lumbar ROM, hip strength, core strength, posture, tissue density. 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 Pt expresses halfway goal of reducing pain, and is motivated to work towards this in PT. Clinical presentation today is most consistent with signs and sx associated with low back pain and pt will benefit from skilled PT 2 week x 4 weeks to address the following problems and impairments noted upon evaluation: pain, lumbar ROM, hip strength, core strength, posture, tissue density. These problems limit the patient with the following functional activities: work, ADLs, bending, lifting. The prescribed treatment plan of care is medically necessary. Co-morbidities of none were identified and taken into considerations of plan of care. Pt was educated on HEP, role of PT, prognosis, POC,. Frequency and Duration: The patient will be seen 2 x week x 4 weeks Short Term Goals: Pt will demonstrate improved hip MMT strength by 1/3 grade in 2 weeks. Pt will demonstrate ability to perform PPT with good core control in 2 weeks. Fci Goals: Pt will demonstrate improved J Luis score by 10% in 4 weeks for improved functional mobility. Pt will demonstrate ability to work a full day with min to no pain in 4 weeks for return to PLOF. Pt will demonstrate ability to complete all ADLs/household duties with min to no pain in 4 weeks for return to PLOF. Treatment Plan: Modalities to reduce pain, spasms and effusion. Manual therapy to restore motion and function. Therapeutic exercise to improve strength and flexibility. Neuromuscular re-education for posture and balance. Therapeutic activities to return to functional activities of daily living. Electronically signed by: Jamila Edwards, PT, DPT, ATC Please sign and return to therapist. Thank you for your referral.
--- NOTE | 2025-01-09 10:34 | MHC.PT.DC ---
[facility] [place] Office [place] Office [place] Office [address] [phone] F: [phone] F: [phone] F: [phone] F: [phone] Physical Therapy Discharge Report Diagnosis: lumbar back pain Date of Surgery: n/a Date of Evaluation: 12/06/24 Date of Discharge: 01/09/25 Treatments to Date: 6 Cancellations to Date: 2 No Shows to Date: 0 Discharge Status: Improved Function Patient Elected to Stop Discharge Summary: Pt called stating he feels better and would like to be d/c. Electronically signed by: Jamila Edwards, PT, DPT, ATC Please sign and return to therapist. Thank you for your referral.
== END 2025-01-09 10:34 | disposition home or self-care (01) ==
LOC: HO.PTCHIC 08:00
PROVIDERS: PCP Family Medicine; Visit Provider Physician Assistant
DX: M54.50 Low back pain, unspecified (principal)
CPT/HCPCS: 97012; 97110; 97140; 97161